=== PATIENT | male | born 2000 ===

== ENCOUNTER 2024-11-20 14:53 | Outpatient (AMB) | payer OTHER, SELFPAY ==
--- NOTE | 2024-11-20 15:30 | A.OFFPC_ITS ---
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 ?? Prior PCP:? . Last office visit/CPE:? > 1 yr Acute issue(s):? Scoliosis Mild 15 deg at base of spine & recommended back brace. Knee pain and had injection behind knee ?? PMHx:? Sleep Apnea and uses CPAP. Scoliosis. SurgHx:? [place] teeth. R 2nd & 3rd finger crush injury FHx:? Mom: Breast CA, DM. Dad: HLD. SocHx:? Nonsmoker, etOH None. No drugs PFSH Medical History (Updated 11/20/24 @ 16:12 by Mendoza Rollins) Crushing injury of finger of right hand Sleep apnea Scoliosis Surgical History (Updated 11/20/24 @ 15:37 by BETH Poe) [place] teeth removed Family History (Updated 11/20/24 @ 15:41 by BETH Poe) Maternal Uncle Substance abuse Father History of high cholesterol Mother Diabetes Breast cancer Maternal Grandmother Breast cancer Social History (Updated 11/20/24 @ 15:42 by BETH Poe) Use of substances other than those prescribed or required for medical reasons: No Questionnaire PHQ-9 Over the last 2 weeks, how often have you been bothered by any of the following problems? 1. Little interest or pleasure in doing things: not at all 2. Feeling down, depressed, or hopeless: not at all 3. Trouble falling or staying asleep, or sleeping too much: not at all 4. Feeling tired or having little energy: not at all 5. Poor appetite or overeating: not at all 6. Feeling bad about yourself - or that you are a failure or have let yourself or your family down: not at all 7. Trouble concentrating on things, such as reading the newspaper or watching television: not at all 8. Moving or speaking so slowly that other people could have noticed. Or the opposite - being so fidgety or restless that you have been moving around a lot more than usual: not at all 9. Thoughts that you would be better off or of hurting yourself in some way: not at all Total score: 0 Depression Screening Interpretation: Negative Depression Screening Done: Yes 42206 - PHQ-9 Billing: Yes Source: Developed by Drs. Edward Hoover, Tanya Christiansen, Gustabo Stephen and colleagues, with an educational nicole from [employer]. Thrive Questionnaire Date Thrive assessed: 11/20/24 I am a: Patient What is your living situation today?: I have a steady place to live Within the past 12 months, did the food you bought not last and you didn't have the money to get more?: Never true Within the past 12 months, did you worry whether your food would run out before you got money to buy more?: Never true Do you have trouble paying for medicines?: No Do you have trouble getting transportation to medical appointments?: No Do you have trouble paying your heating and electricity bill?: No Do you have trouble taking care of your child, family member or friend?: No Do you have trouble with day-to-day activities such as bathing, preparing meals, shopping, managing finances, etc.?: No Are you currently unemployed and looking for a job?: No Are you interested in more education?: Yes Please select the resources that you would like help with: None Currently or been in a relationship where the following occur: No concerns reported THRIVE Score: 0 AUDIT C Alcohol Use Questionnaire (AUDIT-C) 1. How often do you have a drink containing alcohol?: Never 3. How often do you have six or more drinks on one occasion?: Never Total Score: 0 Score Reviewed/Action Taken: Yes KENDAL-7 AMB Questionnaire KENDAL-7 Date KENDAL - 7 assessed: 11/20/24 Feeling nervous, anxious, or on edge: 0 = Not at all Not being able to stop or control worryin = Not at all Worrying too much about different things: 0 = Not at all Trouble relaxin = Not at all Being so restless that it is hard to sit still: 0 = Not at all Becoming easily annoyed or irritable: 0 = Not at all Feeling afraid as if something awful might happen: 0 = Not at all Total KENDAL-7 score (0-4 normal; 5-9 mild; 10-14 moderate; 15-21 severe): 0 Source: Developed by Drs. Edward Hoover, Tanya Christiansen, Gustabo Stephen and colleagues, with an educational nicole from [employer]. KENDAL-7 Assessment Billing KENDAL-7 Assessment Tool: KENDAL-7 Assessment 08857 Review of Systems Const Denies chills, Denies fatigue, Denies fever(s), Denies headache(s) and Denies weakness ENT Denies dizziness and Denies headache(s) Card Denies chest pain, Denies lightheadedness, Denies dyspnea and Denies other (Palpitations) Resp Denies cough, Denies dyspnea, Denies wheezing and Denies other ( shortness of breath) Musc Denies numbness and Denies tingling Neuro Denies dizziness, Denies headache(s), Denies numbness, Denies tingling, Denies paresthesias and Denies weakness Psych Denies anxiety and Denies depression Endo Denies fatigue Aller/Immun Denies wheezing Physical exam (Primary Care) Vital Signs: Last Vital Signs Temp 97.8 F 11/20/24 15:43 Pulse 82 11/20/24 15:43 Resp 14 11/20/24 15:43 BP 110/70 11/20/24 15:43 Pulse Ox 98 11/20/24 15:43 Oxygen Delivery Method Room Air 11/20/24 15:43 BMI result Body Mass Index 32.6 PHQ-9: PHQ-9 Score PHQ-9: Total score 0 11/20/24 15:59 Depression Screening Interpretation: Negative Thrive Assessment: Date of Thrive Assessment Date Thrive assessed 11/20/24 11/20/24 15:47 Currently or been in a relationship where the following occur: No concerns reported Const General: no acute distress and well developed Nutritional Appearance: well nourished Orientation/consciousness: patient oriented x3 HENMT Head: Yes normocephalic and Yes atraumatic Eyes General: appearance normal, both eyes and all related structures Pupils: Equal, round and reactive pupils present EOM: EOMs intact bilaterally Resp Effort & Inspection: normal respiratory effort Auscultation: clear to auscultation bilaterally Cardio Rate: regular rate Rhythm: regular rhythm Heart sounds: S1 normal heart sound present, S2 normal heart sound present, no gallops, no murmurs and no rubs Neuro General: patient oriented x3 and gait normal Cranial nerves: Yes Equal, round and reactive pupils present Psych Affect: normal affect Coding Level of Care Code New Pt Level 3 (17083) Diagnoses Scoliosis M41.9 Knee pain M25.569 Sleep apnea G47.30 Obesity E66.9 Laboratory exam ordered as part of routine general medical examination Z00.00 Additional Codes KENDAL-7 Assessment Billing - KENDAL-7 Assessment Tool: KENDAL-7 Assessment 72863 ([id number]) PHQ-9 - 75187 - PHQ-9 Billing: Yes ([id number]) Assessment & Plan Assessment & Plan (1) Scoliosis: Code(s): M41.9 - Scoliosis, unspecified Category: Medical Plan: Somewhat?mild?scoliosis?on?my?exam?and?I?do?not?have?prior?records. Patient?says?he?was?given?a?back?brace?by?urgent?care?CAREER SERVICES REPRESENTATIVE Will?have?him?follow-up?with?ortho Referred (2) Knee pain: Code(s): M25.569 - Pain in unspecified knee Category: Medical Plan: Patient?is?in?the??has?bilateral?knee?pain?and?wearing??boots?an d?gear at work Already?referred?to?ortho?for?scoliosis Referred?for?bilateral?knee?pain?is?well (3) Sleep apnea: Code(s): G47.30 - Sleep apnea, unspecified Category: Medical Plan: History?of?sleep?apnea?and?CPAP?machine. Patient?needs?new?CPAP Referred?to?Sleep?Medicine (4) Obesity: Code(s): E66.9 - Obesity, unspecified Category: Medical Plan: Obesity?and?history?of?sleep?apnea Will?send?script?for?GLP?1?medication- Mounjaro Patient?will?also?discuss?with?his?insurance?company?which?medications?he?can?ge t?covered?if?they?do?cover?this (5) Laboratory exam ordered as part of routine general medical examination: Code(s): Z00.00 - Encounter for general adult medical examination without abnormal findings Category: Medical Plan: Check?labs Orders: Orders Lipid Panel Today Z00.00 - Encounter for general adult medical examination without abnormal findings Microalbumin, Random (w Creat) Today I10 - Essential (primary) hypertension HIV Ab/Ag Today Z11.3 - Encounter for screening for infections with a predominantly sexual mode of transmission Syphilis Screen Today Z11.3 - Encounter for screening for infections with a predominantly sexual mode of transmission Complete Blood Count Auto Diff Today Z00.00 - Encounter for general adult medical examination without abnormal findings Comprehensive Wheeler. Panel Fast Today Z00.00 - Encounter for general adult medical examination without abnormal findings UA CC w/rflx Micro + Cult Today Z00.00 - Encounter for general adult medical examination without abnormal findings TSH reflex Free T4 Today Z00.00 - Encounter for general adult medical examination without abnormal findings CT NG by PCR Vag/Cerv Today Z11.3 - Encounter for screening for infections with a predominantly sexual mode of transmission Hepatitis B,C Profile Today Z11.3 - Encounter for screening for infections with a predominantly sexual mode of transmission Referrals Sleep Medicine Referral G47.30 - Sleep apnea, unspecified Orthopedics Referral M25.569 - Pain in unspecified knee, M41.9 - Scoliosis, unspecified Medications: New tirzepatide (Mounjaro) for 4 weeks 2.5 mg (0.5 mL) subcut QWEEK 2 mL 3RF 28 days E66.9 - Obesity, unspecified, G47.30 - Sleep apnea, unspecified
[2024-11-20 15:43] VITALS: BP 110/70; PULSE 82; RESP 14; TEMP 36.6; O2SAT 98; BMI 32.6
== END 2024-11-20 16:15 | disposition home or self-care (01) ==
LOC: HO.HMCFM 14:54
PROVIDERS: PCP Family Medicine; Visit Provider Family Medicine
DX: M41.9 Scoliosis, unspecified (principal); M25.569 Pain in unspecified knee; E66.9 Obesity, unspecified; Z68.32 Body mass index [BMI] 32.0-32.9, adult; G47.30 Sleep apnea, unspecified

== ENCOUNTER → 2024-11-20 14:53 | Outpatient (BNVA) | payer OTHER, SELFPAY | PROVIDERS: PCP Family Medicine; Visit Provider Family Medicine | DX: M41.9 Scoliosis, unspecified (principal); G47.30 Sleep apnea, unspecified; E66.9 Obesity, unspecified; M25.561 Pain in right knee; M25.562 Pain in left knee | CPT/HCPCS: 96127; 99202 ==

== ENCOUNTER 2024-11-22 11:01 | Outpatient (REF) | payer OTHER, SELFPAY ==
[2024-11-22 14:37] LABS: Appearance Urine Clear; Glucose Urine UA Negative (Negative); PH 6.0 (5.0-9.0); Specific Gravity - Urine 1.025 (1.005-1.025)
[2024-11-22 14:50] LABS: MANUAL DIFF FLAG NO
[2024-11-22 15:00] LABS: Hematocrit 44.1 % (42.0-52.0); Hemoglobin 14.4 g/dl (14.0-18.0); Imm Gran Abs Auto 0.02 X10*3/uL (0.00-0.03); Imm Gran Pct Auto 0.5 % (0.0-0.4); Lymphocytes Absolute Auto 1.3 X10*3/uL (1.2-4.9); Mean Corpuscular HGB Conc 32.7 g/dl (31.0-36.0); Mean Corpuscular Hemoglobin 27.3 pg (27.0-33.0); Mean Corpuscular Volume 83.5 fL (80.0-98.0); NRBC Abs Auto 0.000 X10*3/uL (0.0-0.012); NRBC Pct Auto 0.0 /100WBC (0.0-0.2); Platelet Count 243 X10*3/uL (160-400); Red Blood Count 5.28 X10*6/uL (4.60-5.80); White Blood Count 4.3 X10*3/uL (4.8-10.8)
[2024-11-22 15:24] LABS: Alanine Aminotransferase 42 U/L (0-40); Albumin Level 4.9 g/dL (3.5-5.0); Alkaline Phosphatase 81 U/L (39-117); Anion Gap 13 (12-20); Aspartate Amino Transferase 25 U/L (5-37); Blood Urea Nitrogen 12 mg/dL (9-16); Calcium 9.2 mg/dL (8.4-10.2); Carbon Dioxide 26 mmol/L (22-29); Chloride 106 mmol/L (96-108); Cholesterol 184 mg/dL (<200); Estimated Glomerular Filt Rate > 60; HDL Cholesterol 35 mg/dL (>40); Potassium 3.6 mmol/L (3.3-5.1); Sodium 141 mmol/L (135-145); Total Protein 7.1 g/dL (6.5-8.0); Triglycerides 115 mg/dL (<150)
[2024-11-22 15:35] LABS: Microalbum/Creatinine Ratio Ur 5.7 ug/mg cr (<30)
[2024-11-23 08:34] LABS: HBS Num1 31.55 mIU/mL (0-7.99); HBc Num1 0.08 S/CO (0.00-0.79); HBsAGNum1 0.62 S/CO (0.00-0.99); HIV Num 1 0.04 S/CO (0.00-0.99); Hepatitis B Surface Antigen Negative (Negative); ~HepC Num1 0.10 S/CO (0.00-0.79); ~Hepatitis B Surface Antibody REACTIVE (Nonreactive); ~Hepatitis C Antibody Nonreactive (Nonreactive)
[2024-11-23 08:42] LABS: Syphilis Screen Nonreactive (Nonreactive)
== END 2024-11-22 11:02 | disposition home or self-care (01) ==
LOC: HO.WFDLDS 11:01
PROVIDERS: Visit Provider Family Medicine
DX: Z00.00 Encounter for general adult medical examination without abnormal findings (principal); I10 Essential (primary) hypertension; Z11.4 Encounter for screening for human immunodeficiency virus [HIV]; Z20.2 Contact with and (suspected) exposure to infections with a predominantly sexual mode of transmission
CPT/HCPCS: 36415; 80053; 80061; 81003; 82043; 82570; 84443; 85025; 86704; 86706; 86780; 86803; 87340; 87389

== ENCOUNTER 2024-11-23 10:56 | Outpatient (AMB) | payer OTHER, SELFPAY ==
[2024-11-23 11:00] VITALS: BP 108/78; PULSE 74; O2SAT 98; BMI 32.1
--- NOTE | 2024-11-23 11:00 | MHC.OFFVIS ---
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 History of sleep apnea and CPAP machine. Patient needs new CPAP. was stationed in [place] and received CPAP from their company. Patient last sleep stud was about 2yrs ago(2022). Accompanied by: Self / Same As Patient Allergies No Known Allergies Allergy (Verified 11/23/24 11:07) HPI Comments Details: 24 year old male is here for a new patient visit and evaluation of his CLARENCE, referred to us by his PCP. FH Denies, sister 23 is developmentally slow with a learning difficulty. 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 He completed a PSG in 2022 and dx with moderate sleep apnea AHI was 29.6 in suppine position, and oxygenation desaturation. He is always sleepy even after 8-10hours of sleep, has a deviated septum and snores loudly. He wakes up with headaches feels drowsy all day. He feels chronically fatigued. He has a h/o sleep talking, and gibberish, denies parasomnias. He falls a lot and feels very clumsy as his knees give out on him, taking Tizanidine for lbp, will f/u with ortho December 21. He has morning headaches every other day but they go away once he washes his face or splashes water on it. Denies bruxism. Deneis RLS symptoms. His diet is okay, just likes to eat fast food, if not able to meal prep. He plans to start mounjaro 2.5mg at the pharmacy, which he has not picked up and needs a prior authorization. Currently taking phentermine which helps crave his appetite. He goes to the gym 2-3x a week 30 min to an hour, weight lifting and plays basket ball for cardio still can not lose weight. Drinks plenty of water. Does not drink alcohol, does not smoke, and or vape. [facility] Medical History Crushing injury of finger of right hand Sleep apnea Scoliosis Surgical History [place] teeth removed Family History Maternal Uncle Substance abuse Father History of high cholesterol Mother Diabetes Breast cancer Maternal Grandmother Breast cancer Physical Exam Vital Signs: Last Vital Signs Pulse 74 11/23/24 11:00 BP 108/78 11/23/24 11:00 Pulse Ox 98 11/23/24 11:00 Oxygen Delivery Method Room Air 11/23/24 11:00 BMI result Body Mass Index 32.1 Const General: cooperative, comfortable and no acute distress Nutritional Appearance: average body habitus and obese Orientation/consciousness: patient oriented x3 HEENT Face and sinus: Yes face symmetric Throat: Yes other ([place] score of 4) Eyes Pupils: Equal, round and reactive pupils present Neck Neck: Yes full ROM Resp Effort & Inspection: normal respiratory effort and able to speak in complete sentences Neuro General: patient oriented x3 and moves all extremities Cranial nerves: Yes Equal, round and reactive pupils present, Yes Normal accommodation reflex present, Yes Normal facial strength present, Yes Midline tongue present, Yes Ability to bilaterally rotate head present and Yes Ability to bilaterally elevate shoulders present Cognition (Neuro): normal cognition Gait exam (Neuro): Normal gait present Motor exam (neuro): 5/5 motor strength present throughout and Normal motor muscle tone present throughout Deep tendon reflexes (DTR's): Right triceps reflex intensity grade: 2+, Left triceps reflex intensity grade: 2+, Rt Biceps (C5, C6): 2+, Left biceps reflex intensity grade: 2+, Right brachioradialis reflex intensity grade: 2+, Left brachioradialis reflex intensity grade: 2+, Right patellar reflex intensity grade: 2+, Left patellar reflex intensity grade: 2+, Right ankle reflex intensity grade: 2+ and Left ankle reflex intensity grade: 2+ Psych Appearance: grossly normal Attitude: cooperative Thought process: Normal thought process present Thought content: Normal thought content present Results Reviewed Results Reviewed: labs cholesterol LDL elevated Assessment & Plan Assessment & Plan (1) Excessive daytime sleepiness: Comment: hypersomolence Code(s): G47.19 - Other hypersomnia Category: Medical (2) History of deviated nasal septum: Comment: refer to ENT Code(s): Z87.09 - Personal history of other diseases of the respiratory system Category: Medical Plan HST to r/o CLARENCE Labs for fatigue b12, vit d, ferritin mma, homocystein folate, A1c? Deviated septum ENT Referral f/u in 3 months Orders: Orders Vitamin B12 and Folate Today G47.19 - Other hypersomnia Ferritin Today G47.19 - Other hypersomnia Complete Blood Count no Diff Today G47.19 - Other hypersomnia Vitamin D 25-OH Total Today G47.19 - Other hypersomnia Methylmalonic Acid Today G47.19 - Other hypersomnia, G47.9 - Sleep disorder, unspecified, R53.83 - Other fatigue Homocysteine Today G47.19 - Other hypersomnia, G47.9 - Sleep disorder, unspecified, R53.83 - Other fatigue Hemoglobin A1c Today G47.19 - Other hypersomnia Comprehensive Met. Panel Today G47.19 - Other hypersomnia RT home sleep study Today G47.19 - Other hypersomnia, Z87.09 - Personal history of other diseases of the respiratory system Referrals Ear/Nose/Throat Referral G47.19 - Other hypersomnia, Z87.09 - Personal history of other diseases of the respiratory system Patient Instructions: Sleep Hygiene provided: set a scheduled bedtime and wake time to help regulate the circadian rhythm and balance the release of pituitary hormones. Sleep in a dark room, temperatures below 68 degrees, and no devices n bed. Limit caffeinated products 6 hours prior to bed, and limit fluids 2-4 hours prior to bed. Gentle night yoga, diffusing essential oils, and playing soft music can be relaxing. Hypersomnolence - his last two weight loss meds were phenermine and it helped him to focus, and stay awake while avoiding food cravings and suppressing appetite. Coding Level of Care Code New Pt Level 4 (96616) Diagnoses Excessive daytime sleepiness G47.19 History of deviated nasal septum Z87. Time Spent (min) 30 Comment Evaluation Sleep Questionnaire Difficulty falling asleep: No Difficulty staying asleep?: No Number of arousals: 0 Snoring: Yes (loud due deviated septum) Witnessed apneas: No Gasping arousals: No Nocturia: No GERD: No Vivid dreams: Yes (fear inducing and heart races) Acting out dreams: No Abnormal behavior in sleep: Yes (talking) Abnormal movements in sleep: No Morning headaches: Yes Excessive daytime sleepiness: Yes Daytime naps: No Restless legs: No Hallucinations: No Sleep paralysis: No Drop attacks: No Sleep Study: Yes CPAP: Yes
== END 2024-11-23 12:04 | disposition home or self-care (01) ==
PROVIDERS: PCP Family Medicine; Visit Provider Physician Assistant Medical
DX: G47.19 Other hypersomnia (principal); Z87.09 Personal history of other diseases of the respiratory system
CPT/HCPCS: 99204

== ENCOUNTER 2024-11-23 10:56 | Outpatient (REF) | payer OTHER, SELFPAY ==
[2024-11-23 14:57] LABS: Hematocrit 41.7 % (42.0-52.0); Hemoglobin 13.9 g/dl (14.0-18.0); Mean Corpuscular HGB Conc 33.3 g/dl (31.0-36.0); Mean Corpuscular Hemoglobin 27.8 pg (27.0-33.0); Mean Corpuscular Volume 83.4 fL (80.0-98.0); NRBC Abs Auto 0.000 X10*3/uL (0.0-0.012); NRBC Pct Auto 0.0 /100WBC (0.0-0.2); Platelet Count 232 X10*3/uL (160-400); Red Blood Count 5.00 X10*6/uL (4.60-5.80); White Blood Count 4.3 X10*3/uL (4.8-10.8)
[2024-11-23 15:18] LABS: Hemoglobin A1C 136.9180 umol/L; Total Hemoglobin (HGBA1C) 3665.1498 umol/L
[2024-11-23 15:38] LABS: Alanine Aminotransferase 34 U/L (0-40); Albumin Level 4.6 g/dL (3.5-5.0); Alkaline Phosphatase 77 U/L (39-117); Anion Gap 11 (12-20); Aspartate Amino Transferase 22 U/L (5-37); Blood Urea Nitrogen 11 mg/dL (9-16); Calcium 8.6 mg/dL (8.4-10.2); Carbon Dioxide 25 mmol/L (22-29); Chloride 107 mmol/L (96-108); Estimated Glomerular Filt Rate > 60; Potassium 3.6 mmol/L (3.3-5.1); Sodium 139 mmol/L (135-145); Total Protein 6.7 g/dL (6.5-8.0)
[2024-11-23 15:56] LABS: Folate 9.4 ng/mL (> or = 4.0); Vitamin B12 329 pg/mL (200-900)
[2024-11-23 15:58] LABS: Ferritin 141 ng/mL (20-250)
== END 2024-11-23 10:57 | disposition home or self-care (01) ==
LOC: HO.HKASLDS 10:56
PROVIDERS: PCP Family Medicine; Visit Provider Physician Assistant Medical
DX: G47.19 Other hypersomnia (principal); R53.83 Other fatigue; Z87.09 Personal history of other diseases of the respiratory system
CPT/HCPCS: 36415; 80053; 82306; 82607; 82728; 82746; 83036; 83090; 83921; 85027; 99202

== ENCOUNTER 2024-12-21 09:29 | Outpatient (AMB) | payer OTHER, SELFPAY ==
--- NOTE | 2024-12-21 09:38 | MHC.OFFVIS ---
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 Patient was referred by DR. Canseco 11/22/24, at their visit they discussed mild scoliosis on his exam. At today's visit he states that for the last eight years he has had lower back pain, no injury's to report. Patient states that he is currently in the , [employer] and does a lot of repetitive motions. Patient states that he has attended physical therapy with mild relief. He added that he has never tried injections but would like to discuss his options. No numbness or tingling to report. Allergies No Known Allergies Allergy (Verified 12/21/24 09:44) Medication List - Last Reconciled 12/21/24 by Vernell Schmidt MD cholecalciferol (vitamin D3) 25 mcg PO DAILY 3 months MDD 25mcg tirzepatide (Mounjaro) 2.5 mg (0.5 mL) subcut QWEEK 28 days tizanidine 4 mg PO BEDTIME PRN HPI Comments Details: Lower back pain first happened 8 years ago. Better but stagnating. Pain initially from deadlifting. Treated with NSAIDs. Thought to be muscle pull. It is still same area, same type of pain. Across lower back pain. Non radicular. No numbness. Any new weakness. No bladder/bowel issues. Went to urgent care in [place], did xrays, told him to be mild scoliosis 15 degrees. We do not have a copy of those records. Last PT September 2023. He does have workout regimen 3 days a week. Has separate (non radicular) pain on both knees, has appointment with ortho in January. 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 REPLACED BY [facility] Medical History Crushing injury of finger of right hand Sleep apnea Scoliosis Surgical History [place] teeth removed Family History Maternal Uncle Substance abuse Father History of high cholesterol Mother Diabetes Breast cancer Maternal Grandmother Breast cancer Social History (Updated 12/21/24 @ 09:45 by Mira Olmos) Alcohol intake: never Patient Tobacco Use Status: Never used Tobacco Current occupational status: employed Current occupation: - [employer]. Review of Systems Const All systems reviewed & are unremarkable except as noted in HPI and below Physical Exam Exam Exam: Constitutional: Patient appears to be in no acute distress, well nourished and well developed. Patient was appropriately conversant and oriented. Good historian. MSK: No specific abnormalities found on inspection of the spine and all extremities. No pain with palpation over the lumbar area. SI joints nontender. GT nontender. Lumbar ROM was full but he had some pain with and range extension and end range forward flexion. No pain with rotation. Bilateral hip, knee and ankle ROM WNL. No ligamentous laxity or crepitance. No increased effusion. Straight-leg raising test negative. FABERE test positive left side only. Strength is 5/5 in all muscle groups tested. No increased tone noted. Neurological: Neurologic examination of the upper and lower extremities was nonfocal with intact sensation, muscle stretch reflexes and without focal motor deficits . Ashton?s negative bilaterally. Babinski was down going bilaterally. Clonus was negative. Gait is non-antalgic without loss of balance. Vital Signs: BMI result Body Mass Index 31.2 Results Reviewed Results Reviewed: The previous x-ray was not available for my review. I reviewed records from the following: PCP Assessment & Plan Assessment & Plan (1) Lower back pain: Code(s): M54.50 - Low back pain, unspecified Category: Medical Qualifiers: Chronicity: chronic Back pain laterality: bilateral Sciatica presence: without sciatica Qualified Code(s): M54.50 - Low back pain, unspecified; G89.29 - Other chronic pain (2) Myofascial pain: Code(s): M79.18 - Myalgia, other site Category: Medical Plan Lower back pain that is none radicular. No signs of lumbar radiculopathy. SI joint nontender either. I suspect this is muscular tightness on paraspinals, quadratus lumborum and even hamstrings. However given his line of work, we should rule out spondylolysis. Sending him for x-rays of lumbar spine to include oblique views. Depending on results, would most likely send him back for physical therapy. Assessment and plan discussed with patient, and patient was agreeable. All questions were answered thoroughly. Follow up telehealth next week. Vernell Schmidt MD, KILO Board Certified, [place] [employer] and Rehabilitation (ABPMR) Board Certified, [place] [employer] of Electrodiagnostic Medicine (ABEM) Orders: Orders XR lumbar spine 2-3V Today M54.9 - Dorsalgia, unspecified Coding Level of Care Code New Pt Level 3 (99603) Diagnoses Chronic bilateral low back pain without sciatica M54.50; G89.29 Chronicity: chronic Back pain laterality: bilateral Sciatica presence: without sciatica Myofascial pain M79.18
[2024-12-21 09:44] VITALS: BMI 31.2
== END 2024-12-21 10:10 | disposition home or self-care (01) ==
LOC: HO.HOS 09:29
PROVIDERS: PCP Family Medicine; Visit Provider Physical Medicine & Rehabilitation
DX: M54.50 Low back pain, unspecified (principal); G89.29 Other chronic pain; M79.18 Myalgia, other site
CPT/HCPCS: 99203

== ENCOUNTER 2024-12-21 09:29 | Outpatient (REF) | payer OTHER, SELFPAY ==
--- NOTE | ~2024-12-21 | XR_ITS ---
EXAMINATION: XR LUMBOSACRAL SPINE CLINICAL INFORMATION: M54.9 - Dorsalgia, unspecified COMPARISON: None available. TECHNIQUE: Three views of the lumbosacral spine. FINDINGS: Moderate stool is present in the transverse colon. Somewhat linear density projecting over the left mid kidney could represent stone. There are 5 non-rib bearing lumbar segments. There is subtle retrolisthesis at L1-2 and L3-4. T12-L1: Minimal disc space narrowing L1-L2: Minimal disc space narrowing L2-L3: Unremarkable L3-L4: Minimal disc space narrowing L4-L5: Unremarkable L5-S1: Unremarkable. On the oblique views, the pars interarticularis regions are not well demonstrated. XR/XR lumbar spine 2-3V IMPRESSION: Mild degenerative disc disease. L5-S1: Pars intraarticularis defects are not ruled out. However, there is no anterolisthesis. Possible left kidney stone. Electronically signed by: Calin Zhao MD 12/21/2024 10:46 AM EDT
== END 2024-12-21 09:30 | disposition home or self-care (01) ==
LOC: HO.HOSX 09:29
PROVIDERS: PCP Family Medicine; Visit Provider Physical Medicine & Rehabilitation
DX: M25.561 Pain in right knee (principal); M79.18 Myalgia, other site; M54.50 Low back pain, unspecified; M25.562 Pain in left knee; G89.29 Other chronic pain; Z79.899 Other long term (current) drug therapy
CPT/HCPCS: 72100; 99202

== ENCOUNTER → 2024-12-21 10:04 | Outpatient (BNV) | payer OTHER, SELFPAY | PROVIDERS: PCP Family Medicine; Visit Provider Radiology Diagnostic Radiology | DX: M51.369 Other intervertebral disc degeneration, lumbar region without mention of lumbar back pain or lower extremity pain (principal) | CPT/HCPCS: 72100 ==

== ENCOUNTER 2025-01-04 09:35 | Outpatient (AMB) | payer OTHER, SELFPAY ==
--- NOTE | 2025-01-04 09:36 | A.OFFVIS_ITS ---
Intake Visit Reasons: Tel-Back Pain/Scoliosis-xray follow up Intake Note: Aime is a 24 year old male who presents today VIA Phone TeleHealth visit for his Pain/Scoliosis- X-ray review. Patient states that the best number would be 91 Allergies No Known Allergies Allergy (Verified 01/04/25 09:38) HPI Comments Details: Lower back pain first happened 8 years ago. Better but stagnating. Pain initially from deadlifting. Treated with NSAIDs. Thought to be muscle pull. It is still same area, same type of pain. Across lower back pain. Non radicular. No numbness. Any new weakness. No bladder/bowel issues. Went to urgent care in [place], did xrays, told him to be mild scoliosis 15 degrees. We do not have a copy of those records. Last PT September 2023. He does have workout regimen 3 days a week. Has separate (non radicular) pain on both knees, has appointment with ortho in January. 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 Since last time I saw her him, we have done a lumbar x-ray which did show mild disc space narrowing. No spondylolisthesis. He has had 1 severe episode of pain, lasting 3 days, 6/10 pain scale, could not stand or sit due to pain. Denied numbness or weakness. Today pain scale is 2/10. [facility] Medical History Crushing injury of finger of right hand Sleep apnea Scoliosis Surgical History [place] teeth removed Family History Maternal Uncle Substance abuse Father History of high cholesterol Mother Diabetes Breast cancer Maternal Grandmother Breast cancer Social History (Updated 12/21/24 @ 09:45 by Mira Olmos) Alcohol intake: never Patient Tobacco Use Status: Never used Tobacco Current occupational status: employed Current occupation: [employer]. Telehealth Telehealth Telehealth Platform: Telephone Location of provider rendering services: practice address Location of patient: address on file Patient Identification confirmed using: Name, : Yes Telehealth method: voice only Patient verbally consented to treatment: Yes Patient verbally consented to billing insurance company: Yes Patient informed of any privacy concerns related to visit: No Minutes spent on Phone/Video with Pt.: 10 Results Reviewed Results Reviewed: Ordering Physician: Vernell Vázquez Date of Service: 12/21/24 Procedure(s): XR lumbar spine 2-3V Accession Number(s): [id number] cc: Gorge Canseco MD; Vernell Vázquez~ EXAMINATION: XR LUMBOSACRAL SPINE CLINICAL INFORMATION: M54.9 - Dorsalgia, unspecified COMPARISON: None available. TECHNIQUE: Three views of the lumbosacral spine. FINDINGS: Moderate stool is present in the transverse colon. Somewhat linear density projecting over the left mid kidney could represent stone. There are 5 non-rib bearing lumbar segments. There is subtle retrolisthesis at L1-2 and L3-4. T12-L1: Minimal disc space narrowing L1-L2: Minimal disc space narrowing L2-L3: Unremarkable L3-L4: Minimal disc space narrowing L4-L5: Unremarkable L5-S1: Unremarkable. On the oblique views, the pars interarticularis regions are not well demonstrated. XR/XR lumbar spine 2-3V IMPRESSION: Mild degenerative disc disease. L5-S1: Pars intraarticularis defects are not ruled out. However, there is no anterolisthesis. Possible left kidney stone. Electronically signed by: Calin Zhao MD 12/21/2024 10:46 AM EDT RP Assessment & Plan Assessment & Plan (1) Lower back pain: Code(s): M54.50 - Low back pain, unspecified Category: Medical Qualifiers: Chronicity: chronic Back pain laterality: bilateral Sciatica presence: without sciatica Qualified Code(s): M54.50 - Low back pain, unspecified; G89.29 - Other chronic pain (2) Myofascial pain: Code(s): M79.18 - Myalgia, other site Category: Medical Plan Lower back pain that is non radicular. No signs of lumbar radiculopathy and SI joint nontender when I last saw him in person. I thought/suspected this is muscular tightness on paraspinals, quadratus lumborum and even hamstrings. Lumbar x-rays did showed disc space narrowing mildly. We have agreed to starting him in physical therapy especially to work on paraspinals and quadratus lumborum and core muscles. 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 We will re-evaluate in 4-6 weeks. Assessment and plan discussed with patient, and patient was agreeable. All questions were answered thoroughly. Vernell Schmidt MD, KILO Board Certified, [place] Board of [employer] Medicine and Rehabilitation (ABPMR) Board Certified, [place] Board [employer] Electrodiagnostic Medicine (ABEM) Orders: Orders PT Evaluation and Treatment Today G89.29 - Other chronic pain, M54.50 - Low back pain, unspecified, M79.18 - Myalgia, other site Coding Level of Care Code Est Pt Level 4 (75482) Diagnoses Chronic bilateral low back pain without sciatica M54.50; G89.29 Chronicity: chronic Back pain laterality: bilateral Sciatica presence: without sciatica Myofascial pain M79.18
== END 2025-01-04 09:56 | disposition home or self-care (01) ==
LOC: HO.HOS 09:35
PROVIDERS: PCP Family Medicine; Visit Provider Physical Medicine & Rehabilitation
DX: M54.50 Low back pain, unspecified (principal); G89.29 Other chronic pain; M79.18 Myalgia, other site
CPT/HCPCS: 99214

== ENCOUNTER → 2025-01-04 09:35 | Outpatient (BNVA) | payer OTHER, SELFPAY | PROVIDERS: PCP Family Medicine; Visit Provider Physical Medicine & Rehabilitation | DX: M54.50 Low back pain, unspecified (principal); G89.29 Other chronic pain; M79.18 Myalgia, other site | CPT/HCPCS: 99212 ==

== ENCOUNTER 2025-01-18 10:38 | Outpatient (REF) | payer OTHER, SELFPAY ==
--- NOTE | ~2025-01-18 | XR_ITS ---
Exam: X-ray, bilateral knees.XR KNEE 3 VIEWS BILATERAL TECHNIQUE: Three views lower extremity joint, bilateral knees INDICATION: pain COMPARISON: None available. FINDINGS: RIGHT KNEE: There is no joint effusion. There is mild narrowing of the medial joint space. There are no osteophytes or soft tissue calcifications. There is mild lateral patellar tilt. LEFT KNEE: There is no joint effusion There is mild narrowing of the medial joint space. There is lateral patellar tilt. XR/XR Knee Leonardo 3V IMPRESSION: Right knee: There is mild lateral patellar tilt. Correlate for signs symptoms of excess lateral pressure syndrome. Nonspecific mild medial joint space narrowing. Left knee: There is moderate lateral patellar tilt. Correlate for signs symptoms of excessive lateral pressure syndrome. Nonspecific mild medial joint space narrowing. Electronically signed by: Calin Zhao MD 01/18/2025 02:28 PM EDT
== END 2025-01-18 10:39 | disposition home or self-care (01) ==
LOC: HO.HOSX 10:38
PROVIDERS: Visit Provider Physician Assistant
DX: S93.409A Sprain of unspecified ligament of unspecified ankle, initial encounter (principal); M22.2X1 Patellofemoral disorders, right knee; M22.2X2 Patellofemoral disorders, left knee; M25.561 Pain in right knee; M25.562 Pain in left knee
CPT/HCPCS: 73562; 99212

== ENCOUNTER 2025-01-18 13:52 | Outpatient (AMB) | payer OTHER, SELFPAY ==
--- NOTE | 2025-01-18 14:05 | A.OFFVIS_ITS ---
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 Patient reports pain and weakness in both of his knees that has been present for about 4 years. States that his right knee have given out a few times. His knee pain is located under his kneecap. He denies any traumatic injury. 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 He was given gel injections about 2 years ago that had helped for a week. pain has been present for4 years. cosntatn bending and crawling, impact on knees. under knee cap. intermittent pain weakness in knees, right knee given out a few times. HX of gel injeciton about 2 years ago that helped for about a week. 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 He c/o pain with stairs, climbing, jumping. He states the pain is anterior and feels deep inside. He did have gel injections done while in [place] for knee pain. No relief. He has not done PT and no steroid injections. He does not take OTC ibuprofen or tylenol. REPLACED BY [facility] Medical History Crushing injury of finger of right hand Sleep apnea Scoliosis Surgical History [place] teeth removed Family History Maternal Uncle Substance abuse Father History of high cholesterol Mother Diabetes Breast cancer Maternal Grandmother Breast cancer Social History (Updated 12/21/24 @ 09:45 by Mira Arambula Alcohol intake: never Patient Tobacco Use Status: Never used Tobacco Current occupational status: employed Current occupation: - [employer]. Review of Systems Const All systems reviewed & are unremarkable except as noted in HPI and below Physical Exam Vital Signs: BMI result Body Mass Index 31.2 Const General: cooperative and no acute distress Orientation/consciousness: patient oriented x3 Resp Effort & Inspection: normal respiratory effort and able to speak in complete sen tences Cardio Peripheral pulses: Peripheral pulses 2+ throughout Neuro General: patient oriented x3 Extrem Other: Bilateral knees are normal to inspection he has no effusion. Full range of motion without crepitus. He does have some tenderness laterally with palpation along the patella and positive patellar grind bilaterally. Calf supple and nontender neurovascularly intact. Results Reviewed Results Reviewed: X-rays of both knees obtained in the office today and reviewed by me show bilateral patellar tilt. Assessment & Plan Assessment & Plan (1) Disorder of both patellofemoral joints: Code(s): M22.2X1 - Patellofemoral disorders, right knee; M22.2X2 - Patellofemoral disorders, left knee Category: Medical Plan: We discussed options today which includes physical therapy for both knees. An order was placed and he will contact the facility to make an appointment. Was also fit for bilateral Josafat Pull stabilizing knee braces in the office to use with activity. I sent a prescription for naproxen to the pharmacy to take twice a day for 2 weeks. He was also given a work note for no deep bending twisting pivoting or squatting and avoid impact activities for 6 weeks and then he can resume regular duty. He will see me back as needed. Orders: Orders XR Knee Leonardo 3V Today M25.561 - Pain in right knee, M25.562 - Pain in left knee PT Evaluation and Treatment Today M22.2X1 - Patellofemoral disorders, right knee, M22.2X2 - Patellofemoral disorders, left knee Medications: New naproxen 500 mg PO BID 60 tabs 3RF 30 days S93.409A - Sprain of unspecified ligament of unspecified ankle, initial encounter Coding Level of Care Code Est Pt Level 3 (83839) Complex EM visit Add On G2211 Diagnoses Disorder of both patellofemoral joints M22.2X1; M22.2X2
[2025-01-18 14:13] VITALS: BMI 31.2
== END 2025-01-18 15:02 | disposition home or self-care (01) ==
LOC: HO.HOS 13:52
PROVIDERS: PCP Family Medicine; Visit Provider Physician Assistant
DX: M22.2X1 Patellofemoral disorders, right knee (principal); M22.2X2 Patellofemoral disorders, left knee
CPT/HCPCS: 99213; G2211

== ENCOUNTER → 2025-01-18 13:53 | Outpatient (BNV) | payer OTHER, SELFPAY | PROVIDERS: Visit Provider Radiology Diagnostic Radiology | DX: M25.561 Pain in right knee (principal); M25.562 Pain in left knee | CPT/HCPCS: 73562 ==

== ENCOUNTER → 2025-02-01 10:05 | Outpatient (REF) | payer OTHER, SELFPAY | LOC: HO.SL 10:05 | PROVIDERS: Visit Provider Physician Assistant Medical | DX: Z13.89 Encounter for screening for other disorder (principal) ==

== ENCOUNTER → 2025-02-01 10:36 | Outpatient (BNV) | payer OTHER, SELFPAY | PROVIDERS: Visit Provider Psychiatry & Neurology Neurology | DX: G47.33 Obstructive sleep apnea (adult) (pediatric) (principal) | CPT/HCPCS: 95806 ==

== ENCOUNTER 2025-02-15 07:09 | Outpatient (RCR) | payer OTHER, SELFPAY ==
--- NOTE | 2025-02-12 14:43 | MHC.PT.EP ---
[facility] [place] Office [place] Office [place] Office [address] Juan Antonio Richard [address] [phone] F: [phone] F: [phone] F: [phone] F: [phone] Physical Therapy Plan of Care Date of Evaluation: 02/12/25 Date of Surgery: Diagnosis: M54.50 Low back pain, unspecified G89.29 Other chronic pain M79.18 Myalgia other site Lower back pain *Myofascial pain; work on core muscles Quadratus lumborum, lumbar paraspinals signed by Dr. Vernell Schmidt MD date of script 12/26/24 Assessment: Pt is a 24 y/o male, referred to PT for treatment from M54.50 Low back pain, unspecified G89.29 Other chronic pain M79.18 Myalgia other site Lower back pain *Myofascial pain; work on core muscles Quadratus lumborum, lumbar paraspinals signed by Dr. Vernell Schmidt MD date of script 12/26/24 Pt was also seen by [facility] in December of 2024 for the treatment of knee pain. He was given knee braces and notes using a kneeling mat while at work. Pt exhibits tight R>L paraspinals, tight QL, tight hip flexors, and weak L>R hip abd/ext. He would benefit from attending skilled PT services at a frequency of 2x/week x 4 weeks to address impairments, implement HEP, and restore functional mobility tolerance to resume PLOF. He exhibits (+) Gorge test for hip flexor L>R, (+) lumbar instability testing R>L, and lacks a formal exercise program, noting intolerance for running, squatting, or rising from a kneeling position. He had greater instability/weakness rising from a L LE than from his R LE. Post initial assessment, he was implemented in a written HEP program consisting of hip flexor stretch, LBTR trunk rotation, and hip ER stretching. He is an excellent candidate for PT. Frequency and Duration: The patient will be seen 2x/week x 4 weeks. Short Term Goals: 1. Initiate self care management/home program for lower back/knee pain. 2. Resume exercising back into the gym with tasks to improve flexibility and self-care MOD I. 3. Reduce back pain by 25%. 4. Pt will demonstrate good SLR control and eccentric strength. 5. Initiate walk>jog>program with sx <2/10 in L/S. 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 I HEP with self care management for treatment of back pain. 2. Strength hip ext 5/5 L>R. 3. Strength hip abd 5/5 L>R. 4. Pt will demonstrate negative lumbar prone instability testing. 5. Rise from kneeling position L>R and R>L MOD I. 6. Be able to jog<>run 1 mile with sx <3/10 in L/S. Treatment Plan: Modalities to reduce pain, spasms and effusion. Manual therapy to restore motion and function. Therapeutic exercise to improve strength and flexibility. Neuromuscular re-education for posture and balance. Therapeutic activities to return to functional activities of daily living. Electronically signed by: Susy Wynn PT, DPT Please sign and return to therapist. Thank you for your referral.
== END 2025-02-22 15:16 | disposition home or self-care (01) ==
LOC: HO.PTS 07:09
PROVIDERS: PCP Family Medicine; Visit Provider Physical Medicine & Rehabilitation
DX: M54.50 Low back pain, unspecified (principal); G89.29 Other chronic pain; M79.18 Myalgia, other site
CPT/HCPCS: 97110; 97161

== ENCOUNTER 2025-02-23 09:15 | Outpatient (AMB) | payer OTHER, SELFPAY ==
--- NOTE | 2025-02-23 09:25 | MHC.OFFVIS ---
Vital Signs 02/23/25 09:30 Height 5 ft 8 in Weight 208 lb BMI 31.6 Intake Visit Reasons: OV- Lower Back pain, PT Follow up Intake Note: Aime is a 24 year old male who presents today as a follow up for his Lower Back pain. At last visit we referred him to physical therapy. At today's visit he states that he only had two appointments with physical therapy but noted that he also missed two appointments. Patient was instructed to call the physical therapy department to make his next appointment. Patient states that the lower back pain feels like it plateaued and that he feels that it is now manageable. Allergies No Known Allergies Allergy (Verified 02/23/25 09:29) Medication List - Last Reconciled 02/23/25 by Vernell Schmidt MD cholecalciferol (vitamin D3) 25 mcg PO DAILY 3 months MDD 25mcg naproxen 500 mg PO BID 30 days tizanidine 4 mg PO BEDTIME PRN HPI Comments Details: Lower back pain first happened 8 years ago. Better but stagnating. Pain initially from deadlifting. Treated with NSAIDs. Thought to be muscle pull. It is still same area, same type of pain. Across lower back pain. Non radicular. No numbness. Any new weakness. No bladder/bowel issues. Went to urgent care in [place], did xrays, told him to be mild scoliosis 15 degrees. We do not have a copy of those records. Last PT September 2023. He does have workout regimen 3 days a week. Has separate (non radicular) pain on both knees, has appointment with ortho in January. 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 Since last time I saw her him, no severe episodes. Would have pain depending on activity, need to get support and doesn't or prolonged sitting, standing or fast walking. Non radicular. [facility] Medical History Crushing injury of finger of right hand Sleep apnea Scoliosis Surgical History [place] teeth removed Family History Maternal Uncle Substance abuse Father History of high cholesterol Mother Diabetes Breast cancer Maternal Grandmother Breast cancer Social History (Updated 12/21/24 @ 09:45 by Mira Olmos) Alcohol intake: never Patient Tobacco Use Status: Never used Tobacco Current occupational status: employed Current occupation: - [employer]. Physical Exam Exam Exam: Constitutional: Patient appears to be in no acute distress, well nourished and well developed. Patient was appropriately conversant and oriented. Good historian. MSK: No specific abnormalities found on inspection of the spine and all extremities. No pain with palpation over the lumbar area. SI joints nontender. GT nontender. Lumbar ROM was full but he had some pain with and range extension and end range forward flexion. No pain with rotation. Bilateral hip, knee and ankle ROM WNL. No ligamentous laxity or crepitance. No increased effusion. Straight-leg raising test negative. FABERE test positive left side only. Strength is 5/5 in all muscle groups tested. No increased tone noted. Neurological: Neurologic examination of the upper and lower extremities was nonfocal with intact sensation, muscle stretch reflexes and without focal motor deficits . Ashton?s negative bilaterally. Babinski was down going bilaterally. Clonus was negative. Gait is non-antalgic without loss of balance. Vital Signs: BMI result Body Mass Index 31.6 Results Reviewed Results Reviewed: Ordering Physician: Vernell Vázquez Date of Service: 12/21/24 Procedure(s): XR lumbar spine 2-3V Accession Number(s): [id number] cc: Gorge Canseco MD; Vernell Vázquez EXAMINATION: XR LUMBOSACRAL SPINE CLINICAL INFORMATION: M54.9 - Dorsalgia, unspecified COMPARISON: None available. TECHNIQUE: Three views of the lumbosacral spine. FINDINGS: Moderate stool is present in the transverse colon. Somewhat linear density projecting over the left mid kidney could represent stone. There are 5 non-rib bearing lumbar segments. There is subtle retrolisthesis at L1-2 and L3-4. T12-L1: Minimal disc space narrowing L1-L2: Minimal disc space narrowing L2-L3: Unremarkable L3-L4: Minimal disc space narrowing L4-L5: Unremarkable L5-S1: Unremarkable. On the oblique views, the pars interarticularis regions are not well demonstrated. XR/XR lumbar spine 2-3V IMPRESSION: Mild degenerative disc disease. L5-S1: Pars intraarticularis defects are not ruled out. However, there is no anterolisthesis. Possible left kidney stone. Electronically signed by: Calin Zhao MD 12/21/2024 10:46 AM EDT RP Assessment & Plan Assessment & Plan (1) Lumbar degenerative disc disease: Code(s): M51.369 - Other intervertebral disc degeneration, lumbar region without mention of lumbar back pain or lower extremity pain Category: Medical Qualifiers: Disc-related pain type: discogenic back pain only Qualified Code(s): M51.360 - Other intervertebral disc degeneration, lumbar region with discogenic back pain only Plan Patient had undergone adequate conservative management including PT without improvement of condition. It would be reasonable to obtain further imaging such as MRI. An MRI would help rule out any serious condition, guide treatment and assess prognosis for recovery. Specifically ruling out lumbar disc herniation causing nerve impingement. Assessment and plan discussed with patient, and patient was agreeable. All questions were answered thoroughly. Follow up after MRI. Vernell Schmidt MD, KILO Board Certified, [place] [employer] and Rehabilitation (ABPMR) Board Certified, [place] [employer] Electrodiagnostic [employer] (ABEM) Orders: Orders MR lumbar spine wo con Today M51.369 - Other intervertebral disc degeneration, lumbar region without mention of lumbar back pain or lower extremity pain Coding Level of Care Code Est Pt Level 4 (44116) Diagnoses Degeneration of intervertebral disc of lumbar region with discogenic back pain M51.360 Disc-related pain type: discogenic back pain only
[2025-02-23 09:30] VITALS: BMI 31.6
== END 2025-02-23 09:57 | disposition home or self-care (01) ==
LOC: HO.HOS 09:16
PROVIDERS: Visit Provider Physical Medicine & Rehabilitation
DX: M51.360 Other intervertebral disc degeneration, lumbar region with discogenic back pain only (principal)
CPT/HCPCS: 99214

== ENCOUNTER → 2025-02-23 09:15 | Outpatient (BNVA) | payer OTHER, SELFPAY | PROVIDERS: Visit Provider Physical Medicine & Rehabilitation | DX: M51.360 Other intervertebral disc degeneration, lumbar region with discogenic back pain only (principal) | CPT/HCPCS: 99212 ==

== ENCOUNTER 2025-02-26 13:53 | Outpatient (AMB) | payer OTHER, SELFPAY ==
--- NOTE | 2025-02-26 14:00 | MHC.PC.OV ---
Vital Signs 02/26/25 14:05 Height 5 ft 8 in Weight 207 lb BMI 31.5 BP 110/74 Blood Pressure Location Lt brachial Position Sitting Respiration 16 Pulse 77 Pulse Source Pulse Oximeter Temp 98.6 F Temp Source Oral Pulse Oximetry (%) 97 Oxygen Delivery Method Room Air Intake Visit Reasons: CPE with f/u labs and health maint. 30 mins Intake Note: patient here for CPE with follow up labs and health maint. 30 min] Wood Stainer Required: No Allergies No Known Allergies Allergy (Verified 02/26/25 14:03) Medication List - Last Reconciled 02/26/25 by Gorge Canseco MD cholecalciferol (vitamin D3) 25 mcg PO DAILY 3 months MDD 25mcg naproxen 500 mg PO BID 30 days tizanidine 4 mg PO BEDTIME PRN Tobacco use date assessed: 02/26/25 Dental Screening Dental Screen Date: 02/26/25 Did you have a dental visit in the last 12 months?: Yes Did you have a dental problem in the last 6 months where you did not have access to dental care?: No Was dental information given to patient?: Patient has dentist HPI CPE with f/u labs and health maint. 30 mins HPI Details 24 y/o male presents for a CPE with f/u labs and health maintenance. Labs drawn 11/23/24. Reviewed labs with pt. Borderline anemia. A1c 5.6%. Triglycerides 115. TC 184. LDL 126. HDL low at 35. Low vitamin D at 20.3 ng/mL. HPI Comments History of Present Illness Details Documentation assistance for Gorge Canseco MD, was provided by Mendoza Rollins, Powertrain Design Engineer on 02/26/2025 at 2:35 PM EST. I, Dr. Canseco, have read, observed, and verified documentation. [facility] Medical History (Updated 02/26/25 @ 14:53 by Gorge Canseco MD) HTN (hypertension) with goal to be determined Crushing injury of finger of right hand Sleep apnea Scoliosis Surgical History [place] teeth removed Family History Maternal Uncle Substance abuse Father History of high cholesterol Mother Diabetes Breast cancer Maternal Grandmother Breast cancer Social History Housing: House Alcohol intake: never Patient Tobacco Use Status: Never used Tobacco e-Cigarette/Vaping Use: Never Used Second Hand Smoke Exposure: No service: Yes Current occupational status: employed Current occupation: - [employer]. Current occupational exposures/hazards: Yes Cognitive needs: No Hearing needs: No Vision needs: Yes Questionnaire PHQ-9 Over the last 2 weeks, how often have you been bothered by any of the following problems? 1. Little interest or pleasure in doing things: not at all 2. Feeling down, depressed, or hopeless: not at all 3. Trouble falling or staying asleep, or sleeping too much: not at all 4. Feeling tired or having little energy: not at all 5. Poor appetite or overeating: not at all 6. Feeling bad about yourself - or that you are a failure or have let yourself or your family down: not at all 7. Trouble concentrating on things, such as reading the newspaper or watching television: not at all 8. Moving or speaking so slowly that other people could have noticed. Or the opposite - being so fidgety or restless that you have been moving around a lot more than usual: not at all 9. Thoughts that you would be better off or of hurting yourself in some way: not at all Total score: 0 Depression Screening Interpretation: Negative Depression Screening Done: Yes 53000 - PHQ-9 Billing: Yes Source: Developed by Drs. Edward Hoover, Tanya Christiansen, Gustabo Stephen and colleagues, with an educational nicole from [employer]. Thrive Questionnaire Date Thrive assessed: 02/26/25 I am a: Patient What is your living situation today?: I have a steady place to live Within the past 12 months, did the food you bought not last and you didn't have the money to get more?: Never true Within the past 12 months, did you worry whether your food would run out before you got money to buy more?: Never true Do you have trouble paying for medicines?: No Do you have trouble getting transportation to medical appointments?: No Do you have trouble paying your heating and electricity bill?: No Do you have trouble taking care of your child, family member or friend?: No Do you have trouble with day-to-day activities such as bathing, preparing meals, shopping, managing finances, etc.?: No Are you currently unemployed and looking for a job?: No Are you interested in more education?: Yes Please select the resources that you would like help with: None Currently or been in a relationship where the following occur: No concerns reported THRIVE Score: 0 AUDIT C Alcohol Use Questionnaire (AUDIT-C) 1. How often do you have a drink containing alcohol?: Never 3. How often do you have six or more drinks on one occasion?: Never Total Score: 0 Score Reviewed/Action Taken: Yes KENDAL-7 AMB Questionnaire KENDAL-7 Date KENDAL - 7 assessed: 02/26/25 Feeling nervous, anxious, or on edge: 0 = Not at all Not being able to stop or control worryin = Not at all Worrying too much about different things: 0 = Not at all Trouble relaxin = Not at all Being so restless that it is hard to sit still: 0 = Not at all Becoming easily annoyed or irritable: 0 = Not at all Feeling afraid as if something awful might happen: 0 = Not at all Total KENDAL-7 score (0-4 normal; 5-9 mild; 10-14 moderate; 15-21 severe): 0 Source: Developed by Drs. Edward Hoover, Tanya Christiansen, Gustabo Stephen and colleagues, with an educational nicole from [employer]. KENDAL-7 Assessment Billing KENDAL-7 Assessment Tool: KENDAL-7 Assessment 85072 Review of Systems Const Denies chills, Denies fatigue, Denies fever(s), Denies headache(s) and Denies weakness Eyes Denies change in vision ENT Denies dizziness, Denies headache(s), Denies hearing loss, Denies nasal congestion, Denies sinus pain, Denies sinus pressure and Denies sore throat Card Denies chest pain, Denies lightheadedness, Denies dyspnea and Denies other (palpitations) Resp Denies cough, Denies dyspnea and Denies wheezing GI Denies abdominal pain, Denies melena, Denies hematochezia, Denies change in bowel habits, Denies dyspepsia and Denies nausea Denies hematuria and Denies dysuria Musc Denies abnormal gait, Denies myalgias, Denies arthralgias, Denies numbness and Denies tingling Skin/Breast Denies rash, Denies unusual bruising and Denies wounds Neuro Denies abnormal gait, Denies dizziness, Denies headache(s), Denies memory loss, Denies numbness, Denies Sensory deficit (Neuro), Denies tingling and Denies weakness Psych Denies anxiety, Denies depression and Denies memory loss Endo Denies cold intolerance, Denies fatigue, Denies heat intolerance, Denies polydipsia and Denies polyuria Phuc/Lymph Denies easy bleeding and Denies easy bruising Aller/Immun Denies wheezing Physical exam (Primary Care) Vital Signs: Last Vital Signs Temp 98.6 F 02/26/25 14:05 Pulse 77 02/26/25 14:05 Resp 16 02/26/25 14:05 BP 110/74 02/26/25 14:05 Pulse Ox 97 02/26/25 14:05 Oxygen Delivery Method Room Air 02/26/25 14:05 BMI result Body Mass Index 31.5 Tobacco/Smoking Status: Tobacco use Status Tobacco use date assessed 02/26/25 02/26/25 14:10 Patient Tobacco Use Status Never used Tobacco 02/26/25 14:03 e-Cigarette/Vaping Use Never Used 02/26/25 14:10 PHQ-9: PHQ-9 Score PHQ-9: Total score 0 02/26/25 14:10 Depression Screening Interpretation: Negative Thrive Assessment: Date of Thrive Assessment Date Thrive assessed 02/26/25 02/26/25 14:10 Currently or been in a relationship where the following occur: No concerns reported Const General: no acute distress, well developed, alert and awake Nutritional Appearance: well nourished Orientation/consciousness: patient oriented x3 HENMT Head: Yes normocephalic and Yes atraumatic Ears: hearing grossly normal bilaterally and TM's normal bilaterally General nose exam: Normal external nose present and Normal nares present Mouth: Normal oral and palatal mucosa present and moist mucous membranes Teeth and gingiva: dentition normal Throat: Yes posterior oropharynx normal Eyes General: appearance normal, both eyes and all related structures Pupils: Equal, round and reactive pupils present and Pupil accommodation reflex normal EOM: EOMs intact bilaterally Neck Neck: Yes normal visual inspection, Yes no lymphadenopathy and Yes trachea midline Thyroid: Thyroid normal Carotids: no bruits Lymphatic: no lymphadenopathy noted Chest Chest palpation & inspection: normal inspection of the chest Resp Effort & Inspection: normal respiratory effort Auscultation: clear to auscultation bilaterally Cardio Rate: regular rate Rhythm: regular rhythm Heart sounds: S1 normal heart sound present, S2 normal heart sound present, no gallops, no murmurs and no rubs Bruits: no abdominal aortic bruits and no carotid bruits GI Palpation (GI): No Abdominal aortic bruit present, Soft to palpation, nontender, No hepatosplenomegaly present and No Rebound tenderness present Auscultation: normal bowel sounds General: Yes no CVA tenderness Back/Spine/Pelvis Back: no CVA tenderness Cervical Spine: cervical ROM normal and No Cervical spine tenderness Thoracic/Lumbar Spine: thoraco-lumbar ROM normal, No pain with thoraco-lumbar ROM, No thoracic spinal tenderness and No lumbar spinal tenderness Skin Lesions: no lesions Rashes: no rashes Trauma: no lacerations or abrasions Wounds: no wounds Nails: normal Neuro General: patient oriented x3 Cranial nerves: Yes Equal, round and reactive pupils present Cognition (Neuro): normal cognition Gait exam (Neuro): Normal gait present Motor exam (neuro): 5/5 motor strength present throughout Sensory Exam: No Sensory deficit (Neuro) Deep tendon reflexes (DTR's): Right patellar reflex intensity grade: 2+ and Left patellar reflex intensity grade: 2+ Extrem General: Yes normal to inspection and No edema Psych Appearance: grossly normal Affect: normal affect Attitude: cooperative Thought process: Normal thought process present Coding Level of Care Code Est Pt Level 3 (90933) Est Pt Prev Care 18-39y(99614) Diagnoses Adult general medical exam Z00.00 Borderline anemia D64.9 Elevated fasting glucose R73.01 Low vitamin D level R79.89 Elevated liver enzymes R74.8 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 Hyperlipidemia E78.5 Additional Codes KENDAL-7 Assessment Billing - KENDAL-7 Assessment Tool: KENDAL-7 Assessment 21993 ([id number]) PHQ-9 - 53346 - PHQ-9 Billing: Yes ([id number]) Assessment & Plan Assessment & Plan (1) Adult general medical exam: Code(s): Z00.00 - Encounter for general adult medical examination without abnormal findings Category: Medical Plan: 24-year-old male presents for complete physical exam Encouraged healthy diet with active lifestyle and plenty of exercise (2) Borderline anemia: Code(s): D64.9 - Anemia, unspecified Category: Medical Plan: Will continue to monitor No blood loss (3) Elevated fasting glucose: Code(s): R73.01 - Impaired fasting glucose Category: Medical Plan: A1c 5.6%. Top-normal Encouraged a diet low in sugars and starches, exercise and weight (4) Low vitamin D level: Code(s): R79.89 - Other specified abnormal findings of blood chemistry Category: Medical Plan: Has started vitamin-D supplementation Can recheck with next blood draw (5) Elevated liver enzymes: Code(s): R74.8 - Abnormal levels of other serum enzymes Category: Medical Plan: Transient elevation in ALT Encouraged good hydration (6) Pseudofolliculitis barbae: Code(s): L73.1 - Pseudofolliculitis barbae Category: Medical Plan: Significant razor burn and ingrown hairs on neck secondary to shaving Patient is in . Will refer him to Dermatology to consider options such as laser treatment. (7) Hyperlipidemia: Code(s): E78.5 - Hyperlipidemia, unspecified Category: Medical Plan: LDL cholesterol is too high HDL, too low Encouraged diet low in saturated fats and cholesterol and weight loss well as exercise Will recheck in a couple of months and discuss Today we discussed that if LDL is still significantly elevated we may need to use medication. Orders: Orders Hemoglobin A1c Today R73.01 - Impaired fasting glucose Complete Blood Count Auto Diff Today D64.9 - Anemia, unspecified, Z00.00 - Encounter for general adult medical examination without abnormal findings Comprehensive [place]. Panel Fast Today R74.8 - Abnormal levels of other serum enzymes, Z00.00 - Encounter for general adult medical examination without abnormal findings Lipid Panel Today E78.5 - Hyperlipidemia, unspecified, Z00.00 - Encounter for general adult medical examination without abnormal findings Referrals Dermatology Referral L73.1 - Pseudofolliculitis barbae
[2025-02-26 14:05] VITALS: BP 110/74; PULSE 77; RESP 16; TEMP 37; O2SAT 97; BMI 31.5
== END 2025-02-26 14:52 | disposition home or self-care (01) ==
LOC: HO.HMCFM 13:53
PROVIDERS: PCP Family Medicine; Visit Provider Family Medicine
DX: Z00.00 Encounter for general adult medical examination without abnormal findings (principal); E78.5 Hyperlipidemia, unspecified; L73.1 Pseudofolliculitis barbae; D64.9 Anemia, unspecified; R73.01 Impaired fasting glucose; R79.89 Other specified abnormal findings of blood chemistry; R74.8 Abnormal levels of other serum enzymes

== ENCOUNTER → 2025-02-26 13:53 | Outpatient (BNVA) | payer OTHER, SELFPAY | PROVIDERS: PCP Family Medicine; Visit Provider Family Medicine | DX: Z00.00 Encounter for general adult medical examination without abnormal findings (principal); E78.5 Hyperlipidemia, unspecified; D64.9 Anemia, unspecified; R73.01 Impaired fasting glucose; R79.89 Other specified abnormal findings of blood chemistry; R74.8 Abnormal levels of other serum enzymes; L73.1 Pseudofolliculitis barbae | CPT/HCPCS: 96127; 99212 ==

== ENCOUNTER 2025-03-06 09:34 | Outpatient (AMB) | payer OTHER, SELFPAY ==
--- NOTE | 2025-03-06 09:40 | MHC.OFFVIS ---
Vital Signs 03/06/25 09:41 Height 5 ft 8 in Weight 215 lb 6 oz BMI 32.7 BP 128/88 Blood Pressure Location Lt brachial Position Sitting Pulse 64 Pulse Source Pulse Oximeter Pulse Oximetry (%) 98 Oxygen Delivery Method Room Air Intake Visit Reasons: 3mnth Intake Note: Patient presents follow up Sleep, Labs/HST in chart(AHI-9, REBECCA-81%, Snoring- 58%. APAP 5-20cm). Accompanied by: Self / Same As Patient Allergies No Known Allergies Allergy (Verified 03/06/25 09:44) HPI Comments Details: 24 year old male presents for a follow up and evaluation of his TEVIN. HST reviewed with pt. AHI-9, oxygen nadirs to 81%, with moderate snoring at 58%, will start him on cpap therapy [id number]. 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 He works 2:30pm to 10pm will get home and goes to bed at midnight. He completed a PSG in 2022 and was dx with moderate sleep apnea AHI was 29.6 in supine position. He is a mouth breather. He is chronically fatigued, even after 8-10 hours of sleep. He has a deviated septum and snores loudly will f/u with ENT in Mar 2025. He wakes up with headaches 1-2x feels drowsy all day. He denies bruxism or jaw pain. He has a h/o sleep talking, and gibberish, denies parasomnias. He denies RLS symptoms. His diet is normal. He plans to start mounjaro 2.5mg once approved with insurance. He goes to the gym 2-3x a week 30 min to an hour, weight lifting and rides the bike for 30min. Drinks plenty of water, denies smoking and or alcohol use. [facility] Medical History HTN (hypertension) with goal to be determined Crushing injury of finger of right hand Sleep apnea Scoliosis Surgical History [place] teeth removed Family History Maternal Uncle Substance abuse Father History of high cholesterol Mother Diabetes Breast cancer Maternal Grandmother Breast cancer Social History Housing: House Alcohol intake: never Patient Tobacco Use Status: Never used Tobacco e-Cigarette/Vaping Use: Never Used Second Hand Smoke Exposure: No service: Yes Current occupational status: employed Current occupation: - [employer]. Current occupational exposures/hazards: Yes Cognitive needs: No Hearing needs: No Vision needs: Yes Physical Exam Vital Signs: Last Vital Signs Pulse 64 03/06/25 09:41 BP 128/88 03/06/25 09:41 Pulse Ox 98 03/06/25 09:41 Oxygen Delivery Method Room Air 03/06/25 09:41 BMI result Body Mass Index 32.7 Const General: cooperative, comfortable and no acute distress Nutritional Appearance: average body habitus and obese Orientation/consciousness: patient oriented x3 HEENT Face and sinus: Yes face symmetric Throat: Yes other ([place] score of 4) Eyes Pupils: Equal, round and reactive pupils present Neck Neck: Yes full ROM Resp Effort & Inspection: normal respiratory effort and able to speak in complete sentences Neuro General: patient oriented x3 and moves all extremities Cranial nerves: Yes Equal, round and reactive pupils present, Yes Normal accommodation reflex present, Yes Normal facial strength present, Yes Midline tongue present, Yes Ability to bilaterally rotate head present and Yes Ability to bilaterally elevate shoulders present Cognition (Neuro): normal cognition Gait exam (Neuro): Normal gait present Motor exam (neuro): 5/5 motor strength present throughout and Normal motor muscle tone present throughout Psych Appearance: grossly normal Attitude: cooperative Thought process: Normal thought process present Thought content: Normal thought content present Assessment & Plan Assessment & Plan (1) Excessive daytime sleepiness: Comment: hypersomolence Code(s): G47.19 - Other hypersomnia Category: Medical (2) History of deviated nasal septum: Comment: refer to ENT Code(s): Z87.09 - Personal history of other diseases of the respiratory system Category: Medical (3) Low vitamin D level: Code(s): R79.89 - Other specified abnormal findings of blood chemistry Category: Medical (4) Low vitamin B12 level: Code(s): R79.89 - Other specified abnormal findings of blood chemistry Category: Medical (5) Chronic headaches: Code(s): R51.9 - Headache, unspecified; G89.29 - Other chronic pain Category: Medical Qualifiers: Headache type: unspecified Intractability: intractable Qualified Code(s): R51.9 - Headache, unspecified; G89.29 - Other chronic pain Plan Mild tevin will start cpap threapy this month and f/u for compliance. Labs reviewed with pt today continue taking vitamin d daily and continue taking b12 1000mcg daily at bedtime. Deviated septum ENT Referral pending in Mar 2025. Headaches will monitor frequency and severity, start Sumatriptan 25mg po at the onset of headache and may take one additional tablet with in 2 hours of the first dose. Do not take more than 200mg po within 24hours. f/u in 3 months Medications: New sumatriptan succinate take one tablet at the onset of headache, may take one additional tablet within 2-4 hours and do not exceed 200mg po with in 24 hours. 25 mg PO ONCE 14 tabs 0RF 1 month MDD 50mg G89.29 - Other chronic pain, R51.9 - Headache, unspecified mecobalamin (vitamin B12) place tablet under tongue and allow to dissolve for at least30 secs before swallowing 1,000 mcg sublingual BEDTIME 90 tabs 0RF low b12 3 months MDD 1000mcg G89.29 - Other chronic pain, R51.9 - Headache, unspecified, R79.89 - Other specified abnormal findings of blood chemistry Patient Instructions: Sleep Hygiene provided: set a scheduled bedtime and wake time to help regulate the circadian rhythm and balance the release of pituitary hormones. Sleep in a dark room, temperatures below 68 degrees, and no devices n bed. Limit caffeinated products 6 hours prior to bed, and limit fluids 2-4 hours prior to bed. Gentle night yoga, diffusing essential oils, and playing soft music can be relaxing. Coding Level of Care Code Est Pt Level 4 (76826) Diagnoses Excessive daytime sleepiness G47.19 History of deviated nasal septum Z87.09 Low vitamin D level R79.89 Low vitamin B12 level R79.89 Chronic intractable headache, unspecified headache type R51.9; G89.29 Headache type: unspecified Intractability: intractable
[2025-03-06 09:41] VITALS: BP 128/88; PULSE 64; O2SAT 98; BMI 32.7
== END 2025-03-06 10:13 | disposition home or self-care (01) ==
LOC: HO.HSMS 09:35
PROVIDERS: PCP Family Medicine; Visit Provider Physician Assistant Medical
DX: G47.19 Other hypersomnia (principal); Z87.09 Personal history of other diseases of the respiratory system; R79.89 Other specified abnormal findings of blood chemistry; R51.9 Headache, unspecified; G89.29 Other chronic pain
CPT/HCPCS: 99214

== ENCOUNTER → 2025-03-06 09:34 | Outpatient (BNVA) | payer OTHER, SELFPAY | PROVIDERS: PCP Family Medicine; Visit Provider Physician Assistant Medical | DX: Z71.2 Person consulting for explanation of examination or test findings (principal); G47.33 Obstructive sleep apnea (adult) (pediatric); G47.19 Other hypersomnia; R51.9 Headache, unspecified; G89.29 Other chronic pain; Z87.09 Personal history of other diseases of the respiratory system; R79.89 Other specified abnormal findings of blood chemistry | CPT/HCPCS: 99212 ==

== ENCOUNTER → 2025-03-29 08:08 | Outpatient (BNV) | payer OTHER, SELFPAY | PROVIDERS: PCP Family Medicine; Visit Provider Radiology Diagnostic Radiology | DX: M51.369 Other intervertebral disc degeneration, lumbar region without mention of lumbar back pain or lower extremity pain (principal); M99.03 Segmental and somatic dysfunction of lumbar region; M48.061 Spinal stenosis, lumbar region without neurogenic claudication | CPT/HCPCS: 72148 ==

== ENCOUNTER 2025-03-29 08:09 | Outpatient (REF) | payer OTHER, SELFPAY ==
--- NOTE | ~2025-03-29 | MR_ITS ---
CLINICAL HISTORY: M51.369 - Other intervertebral disc degeneration, lumbar region without ... --- Additional Notes or Special Instructions: evaluate for disc herniation or spinal stenosis MR lumbar spine without gadolinium Comparison: DX/SR - XR LUMBAR SPINE 2-3 VIEWS - 12/21/24 10:04 EDT Findings: No acute fracture or pathologic bone lesion. Cauda equina and conus medullaris within normal limits. L1-2 and L2-3: No significant central canal or neural foraminal stenosis. L3-4: Mild disc desiccation. Broad-based disc bulge with mild central canal stenosis and no significant neural foraminal stenosis. Grade 1 retrolisthesis of the L3 over L4. L4-5: Minimal broad-based disc bulge with minimal central canal stenosis and no significant neural foraminal stenosis. L5-S1: Moderate disc desiccation. Broad-based disc bulge impinging of the S1 nerve roots with minimal central canal stenosis and mild bilateral neural foraminal stenosis with impingement of the exiting L5 nerve roots. Paraspinous musculature intact. Filum terminale at L1-2. IMPRESSION: 1. Broad-based disc bulge at L5-S1 impinging on S1 nerve roots with mild bilateral neural foraminal stenosis and impingement of exiting L5 nerve roots. 2. Broad-based disc bulge at L3-4 with mild central canal stenosis and grade 1 retrolisthesis of L3 over L4. 3. No acute osseous abnormality. This document has been electronically signed by: Sheldon Hare MD on 03/29/2025 18:27:59
== END 2025-03-29 08:10 | disposition home or self-care (01) ==
LOC: HO.MRI 08:09
PROVIDERS: PCP Family Medicine; Visit Provider Physical Medicine & Rehabilitation
DX: M51.369 Other intervertebral disc degeneration, lumbar region without mention of lumbar back pain or lower extremity pain (principal)
CPT/HCPCS: 72148

== ENCOUNTER 2025-04-06 09:14 | Outpatient (AMB) | payer OTHER, SELFPAY ==
--- NOTE | 2025-04-06 09:24 | MHC.OFFVIS ---
Vital Signs 04/06/25 09:26 Height 5 ft 8 in Weight 199 lb BMI 30.3 Intake Visit Reasons: OV- Lower Back pain, Follow up Intake Note: Aime is a 24 year old male who presents today for a MRI Review of the Lumbar spine, 03/29/25. At today's visit he states that he feels the same no changes to report at this time. Allergies No Known Allergies Allergy (Verified 03/06/25 09:44) Medication List - Last Reconciled 04/06/25 by Vernell Schmidt MD cholecalciferol (vitamin D3) 25 mcg PO DAILY 3 months MDD 25mcg mecobalamin (vitamin B12) 1,000 mcg sublingual BEDTIME 3 months MDD 1000mcg naproxen 500 mg PO BID 30 days sumatriptan succinate 25 mg PO ONCE 1 month MDD 50mg tizanidine 4 mg PO BEDTIME PRN HPI Comments Details: Lower back pain first happened 8 years ago. Better but stagnating. Pain initially from deadlifting. Treated with NSAIDs. Thought to be muscle pull. It is still same area, same type of pain. Across lower back pain. Non radicular. No numbness. Any new weakness. No bladder/bowel issues. Went to urgent care in [place], did xrays, told him to be mild scoliosis 15 degrees. We do not have a copy of those records. Last PT September 2023. He does have workout regimen 3 days a week. Has separate (non radicular) pain on both knees, has appointment with ortho. 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 Since last time I saw her him, no severe episodes. Would have pain depending on activity, need to get support and doesn't or prolonged sitting, standing or fast walking. Non radicular. No numbness. Pain score 2/10, yesterday 4/10 yesterday. MRIs showed broad-based disc bulge L5-S1 with foraminal stenosis, smaller broad-based disc bulge at L3-4. [facility], [facility] Medical History HTN (hypertension) with goal to be determined Crushing injury of finger of right hand Sleep apnea Scoliosis Surgical History [place] teeth removed Family History Maternal Uncle Substance abuse Father History of high cholesterol Mother Diabetes Breast cancer Maternal Grandmother Breast cancer Social History Housing: House Alcohol intake: never Patient Tobacco Use Status: Never used Tobacco e-Cigarette/Vaping Use: Never Used Second Hand Smoke Exposure: No service: Yes Current occupational status: employed Current occupation: - [employer]. Current occupational exposures/hazards: Yes Cognitive needs: No Hearing needs: No Vision needs: Yes Physical Exam Exam Exam: Constitutional: Patient appears to be in no acute distress, well nourished and well developed. Patient was appropriately conversant and oriented. Good historian. MSK: No specific abnormalities found on inspection of the spine and all extremities. Lumbar ROM was full but he had some pain with and range extension and end range forward flexion. No pain with rotation. Bilateral hip, knee and ankle ROM WNL. No ligamentous laxity or crepitance. No increased effusion. Straight-leg raising test negative. FABERE test positive. Strength is 5/5 in all muscle groups tested. No increased tone noted. Neurological: Neurologic examination of the upper and lower extremities was nonfocal with intact sensation, muscle stretch reflexes and without focal motor deficits . Ashton?s negative bilaterally. Babinski was down going bilaterally. Clonus was negative. Gait is non-antalgic without loss of balance. Vital Signs: BMI result Body Mass Index 30.3 Results Reviewed Results Reviewed: Ordering Physician: Vernell Vázquez Date of Service: 03/29/25 Procedure(s): MR lumbar spine wo con Accession Number(s): [id number] cc: Gorge Canseco MD; Vernell Vázquez~ Reason for Exam: M51.369 - Other intervertebral disc degeneration, lumbar region without ... CLINICAL HISTORY: M51.369 - Other intervertebral disc degeneration, lumbar region without ... --- Additional Notes or Special Instructions: evaluate for disc herniation or spinal stenosis MR lumbar spine without gadolinium Comparison: DX/SR - XR LUMBAR SPINE 2-3 VIEWS - 12/21/24 10:04 EDT Findings: No acute fracture or pathologic bone lesion. Cauda equina and conus medullaris within normal limits. L1-2 and L2-3: No significant central canal or neural foraminal stenosis. L3-4: Mild disc desiccation. Broad-based disc bulge with mild central canal stenosis and no significant neural foraminal stenosis. Grade 1 retrolisthesis of the L3 over L4. L4-5: Minimal broad-based disc bulge with minimal central canal stenosis and no significant neural foraminal stenosis. L5-S1: Moderate disc desiccation. Broad-based disc bulge impinging of the S1 nerve roots with minimal central canal stenosis and mild bilateral neural foraminal stenosis with impingement of the exiting L5 nerve roots. Paraspinous musculature intact. Filum terminale at L1-2. IMPRESSION: 1. Broad-based disc bulge at L5-S1 impinging on S1 nerve roots with mild bilateral neural foraminal stenosis and impingement of exiting L5 nerve roots. 2. Broad-based disc bulge at L3-4 with mild central canal stenosis and grade 1 retrolisthesis of L3 over L4. 3. No acute osseous abnormality. Assessment & Plan Assessment & Plan (1) Lumbar degenerative disc disease: Code(s): M51.369 - Other intervertebral disc degeneration, lumbar region without mention of lumbar back pain or lower extremity pain Category: Medical Plan We reviewed lumbar MRI images together. Notable L5-S1 broad-based disc bulge. He has chronic axial back pain, but fortunately no signs of radiculopathy. He has tried adequate conservative management and is now open to trying epidural injection. We will send patient to Dr. Becerril for an L5-S1 interlaminar epidural injection. Patient has asked me to fill up disability/work forms. Continue current restrictions given from last visit. Assessment and plan discussed with patient, and patient was agreeable. All questions were answered thoroughly. Follow up around 1 month after injection. Vernell Schmidt MD, KILO Board Certified, [place] Board of Physical Medicine and Rehabilitation (ABPMR) Board Certified, [place] Board of Electrodiagnostic Medicine (ABEM) Coding Level of Care Code Est Pt Level 4 (82435) Diagnoses Lumbar degenerative disc disease M51.369
[2025-04-06 09:26] VITALS: BMI 30.3
== END 2025-04-06 09:52 | disposition home or self-care (01) ==
LOC: HO.HOS 09:15
PROVIDERS: PCP Family Medicine; Visit Provider Physical Medicine & Rehabilitation
DX: M51.369 Other intervertebral disc degeneration, lumbar region without mention of lumbar back pain or lower extremity pain (principal)
CPT/HCPCS: 99214

== ENCOUNTER → 2025-04-06 09:14 | Outpatient (BNVA) | payer OTHER, SELFPAY | PROVIDERS: PCP Family Medicine; Visit Provider Physical Medicine & Rehabilitation | DX: M51.369 Other intervertebral disc degeneration, lumbar region without mention of lumbar back pain or lower extremity pain (principal) | CPT/HCPCS: 99212 ==

== ENCOUNTER 2025-04-23 13:49 | Outpatient (REF) | payer OTHER, SELFPAY ==
--- OUTSIDE RECORDS SUMMARY | 2025-04-23 17:18 | XMS_ITS | Data Portability ---
Author Organization [facility] - [facility], Allergy Address [address] [address] Care Team Providers Care Tubular Riveter Name Role Phone JUANITO WHITE Primary Care Provider Assessment Encounter Date Assessment Date Assessment LastModified by Organization Details LastModified Time 04/09/2025 04/09/2025 - Deviated nasal septum, left side. - Turbinate hypertrophy, bilateral. -CLARENCE on CPAP Plan: A trial of Fluticasone nasal spray is recommended for six weeks to improve nasal breathing. The patient is instructed to use the spray daily with a cross-spray technique to minimize the risk of nosebleeds, given his use of CPAP therapy. Follow-up is scheduled in six weeks to assess the effectiveness of the nasal spray. If symptoms persist, surgical intervention to correct the deviated septum will be considered. Patient education regarding the use of Fluticasone and its potential benefits was provided. [email or web address] Not available 04/09/2025 13:22:26 Plan of Treatment Reminders Order Date Submit Date Provider Last Modified By Organization Details Last Modified Time Details Appointments Establish ed 15 2024 01:15P Mehrdad Santoro, DO Not available Not available Not available Lab None recorded. Referral None recorded. Procedures None recorded. Surgeries None recorded. Imaging None recorded. Medication Orders None recorded. Patient TargetsNo targets recorded. Patient Instructions Encounter Date Encounter Id Patient Instructions Last Modified By Organization Details Last Modified Time 04/09/2025 [id number] - Use Fluticasone nasal spray daily for six weeks. - Employ cross-spray technique to minimize risk of nosebleeds. - Schedule follow-up appointment in six weeks to assess improvement. - Contact the clinic if symptoms worsen or if there are any concerns. [email or web address] Not available 04/09/2025 13:20:25 Please note: Parts of this encounter note have been generated by AI based on audio conversation. Patient consent was required prior to utilizing this technology. Content review was required prior to finalizing the note. [email or web address] Not available 04/09/2025 13:20:25 Reason for Referral None Reported. Problems Name Problem SNOMED Code Status Onset Date Resolution Date Notes Provider Name and Address Organization Details Recorded Time Obstructive sleep apnea syndrome 72802649 Active 2024 Jaya Santoro, DO [address] [facility],[address] [facility], [email or web address], [address], [facility] - [facility] 12:59:00 Sleeptalking 90557966 Active 2024 Jaya Santoro, DO [address] [facility], [address] [facility], [email or web address], [address], [facility] - [facility] 12:59:21 Deviated nasal septum 910857694 Active 2024 Jaya Santoro, DO [address] [facility],[address] [facility], [email or web address], [address], [facility] - [facility] 12:59:41 Hypertrophy of nasal turbinates 43374239 Active 2024 Jaya Santoro, DO [address] [facility], [address] [facility], [email or web address], [address], [facility] - [facility] 12:59:46 Problem Notes None recorded. Medical Equipment None Reported. Allergies No known drug allergies Medications Name Sig Start Date Stop Date Status Note LastModified by Organization Details LastModified Time cyclobenzapri ne 10 mg tablet TAKE 1 TABLET BY MOUTH THREE TIMES DAILY 04/09 completed Not Available Not Available Not Available ibuprofen 600 mg tablet TAKE 1 TABLET BY MOUTH EVERY 6 HOURS NEEDED FOR PAIN 04/09 completed Not Available Not Available Not Available sumatriptan active Not Available Not A vailable Not Available tizanidine active Not Available Not Av ailable Not Available naproxen active Not Available Not Avai lable Not Available D3-1999 active Not Available Not Avail able Not Available Vitals Date Recorded Body height Body mass index (BMI) Body weight Provider Name and Address Organization Details Last Updated DateTime 04/09/2025 172.72 cm 30.3 kg/m2 36547.88 g JONATHAN SWENSON [place] - [facility] 04/09/2025 13:06:35 Social History None recorded. Functional Status None recorded. Mental Status None recorded. Family History Nothing Reported. Medical History No medical history recorded. Past Encounters Encounter ID Performer Location Encounter Start Date Encounter Closed Date Diagnosis/Indication Diagnosis SNOMED-CT Code Diagnosis ICD10 Code Diagnosis IMO Codes Diagnosis Note [id number] Jyaa Santoro DO [facility] [address] [address] 04/09/2025 12:46:57 04/09/2025 13:20:54 Obstructive sleep apnea syndrome 75821656 G47.33 3602280 - We did have a discussion on sleep hygiene today which includes avoidance of any screens 30 minutes to an hour prior to bedtime, laying in bed only for sleep, avoidance of caffeine or stimulants hours prior to bedtime. We also encouraged the avoidance of alcohol or sedatives for sleep as this reduces overall sleep quality. Sleeptalking 77314387 G4 7.8 712470 Deviated nasal septum 12 9672254 J34.2 318438 Hypertroph y of nasal turbinates 04329956 J34.3 656848 Health Concerns Section Related Observation LastModified by Organization Detai ls LastModified Time None Recorded Concern Status LastModified by Organization Details LastModified Time None Recorded Advance Directives Directive None Recorded Payers Insurance Date Sequence Insurance Name Policy Number Policy Olea Covered Member ID Olea Member ID Guarantor Name 12/08/2024 1 [facility] Aime Cerda [id number] Aime Cerda 04/17/2025 1 [employer] () Aime Cerda [id number] Aime Cerda Notes Date Note Type Note Provider Name and Address Organization Details Recorded Time 04/09/2025 text/html RR: Hx of CLARENCE and CPAP. Prior PSG was in 2022 in [place] - 29.6. has DNS and nasal obstruction, chronic fatigue, Sleep talking Aime Cerda is a 24-year-old male who presents for evaluation of nasal obstruction and difficulty using CPAP therapy due to a deviated septum. Examination reveals a fair deviation of the septum to the left side, along with grade three turbinate hypertrophy bilaterally. He reports chronic nasal congestion and difficulty with nasal breathing. No nasal masses or tumors are observed. The patient has been using CPAP therapy and is at increased risk for nosebleeds. A trial of Fluticasone nasal spray for six weeks is recommended to improve nasal breathing before considering surgical intervention. Jaya Santoro, [address] [facility],[place] [address], [place], [address], [facility] - [facility] 04/09/2025 13:22:32
--- OUTSIDE RECORDS SUMMARY | 2025-04-23 17:18 | XMS_ITS | Continuity of Care Document ---
Author Organization [place] - [facility], [facility] Address [address] [place] [address] Care Team Providers Care Field Interviewer Name Role Phone JUANITO WHITE Primary Care Provider [phone] Assessment Encounter Date Assessment Date Assessment LastModified [...] By Organization Details Last Modified Time 04/09/2025 04774 - Use Fluticasone nasal spray daily for [...] Details Recorded Time Obstructive sleep apnea syndrome 11033633 Active 2024 Jaya Santoro, [address], [address] [facility], [facility], [address], [facility] - [facility] 12:59:00 Sleeptalking 05683862 Active 2024 Jaya Santoro [address], [address] [facility], [place], [address], [facility] - [facility] 12:59:21 Deviated nasal septum 080648480 Active 2024 Jaya Santoro, [address], [address] [facility], [facility] [place], [address], [facility] - [facility] 12:59:41 Hypertrophy of nasal turbinates 05697135 Active 2024 Jaya Santoro DO [address] [place] [address] E [facility], [facility] [place], [address], [facility] - [facility] 12:59:46 Problem Notes None recorded. Medical [...] Updated DateTime 04/09/2025 172.72 cm 30.3 kg/m2 03657.88 g JONATHAN MESSI [facility]ER[facility] - [facility] 04/09/2025 13:06:35 Social History None recorded. Functional Status None recorded. Mental Status None recorded. Family History Nothing Reported. Medical History No medical history recorded. Past Encounters Encounter ID Performer Location Encounter Start Date Encounter Closed Date Diagnosis/Indication Diagnosis SNOMED-CT Code Diagnosis ICD10 Code Diagnosis IMO Codes Diagnosis Note [id number] Jaya Santoro DO [facility] [address] [address] 04/09/2025 12:46:57 04/09/2025 13:20:54 Obstructive sleep apnea syndrome 27270275 G47.33 3435850 - We did have a discussion on sleep hygiene today which includes avoidance of any screens 30 minutes to an hour prior to bedtime, laying in bed only for sleep, avoidance of caffeine or stimulants hours prior to bedtime. We also encouraged the avoidance of alcohol or sedatives for sleep as this reduces overall sleep quality. Sleeptalking 56568519 G4 7.8 890392 Deviated nasal septum 12 7231118 J34.2 701016 Hypertroph y of nasal turbinates 70344361 J34.3 392775 Health Concerns Section Related Observation LastModified by Organization Detai ls LastModified Time None Recorded Concern Status LastModified by Organization Details LastModified Time None Recorded Payers Encounter Date Sequence Insurance Name Policy Number Policy Olea Covered Member ID Olea Member ID Guarantor Name 04/09/2025 1 [employer] () Aime Cerda [id number] Aime Cerda Notes Date Note Type Note Provider Name and Address Organization Details Recorded Time 04/09/2025 text/html RR: Hx of CLARENCE and CPAP. Prior PSG was in 2022 in [facility] - 29.6. has DNS and nasal obstruction, [...] surgical intervention. Jaya Santoro, [address] [facility],[place] [address], [place], [address], [facility] - [facility] 04/09/2025 13:22:32
[2025-04-23 18:32] LABS: MANUAL DIFF FLAG NO
[2025-04-23 19:13] LABS: Hematocrit 44.3 % (42.0-52.0); Hemoglobin 14.5 g/dl (14.0-18.0); Imm Gran Abs Auto 0.01 X10*3/uL (0.00-0.03); Imm Gran Pct Auto 0.2 % (0.0-0.4); Lymphocytes Absolute Auto 1.3 X10*3/uL (1.2-4.9); Mean Corpuscular HGB Conc 32.7 g/dl (31.0-36.0); Mean Corpuscular Hemoglobin 27.4 pg (27.0-33.0); Mean Corpuscular Volume 83.7 fL (80.0-98.0); NRBC Abs Auto 0.000 X10*3/uL (0.0-0.012); NRBC Pct Auto 0.0 /100WBC (0.0-0.2); Platelet Count 238 X10*3/uL (160-400); Red Blood Count 5.29 X10*6/uL (4.60-5.80); White Blood Count 4.5 X10*3/uL (4.8-10.8)
[2025-04-23 19:52] LABS: Alanine Aminotransferase 40 U/L (0-40); Albumin Level 5.0 g/dL (3.5-5.0); Alkaline Phosphatase 89 U/L (39-117); Anion Gap 11 (12-20); Aspartate Amino Transferase 27 U/L (5-37); Blood Urea Nitrogen 11 mg/dL (9-16); Calcium 9.6 mg/dL (8.4-10.2); Carbon Dioxide 29 mmol/L (22-29); Chloride 105 mmol/L (96-108); Cholesterol 184 mg/dL (<200); Estimated Glomerular Filt Rate > 60; HDL Cholesterol 37 mg/dL (>40); Potassium 3.8 mmol/L (3.3-5.1); Sodium 141 mmol/L (135-145); Total Protein 7.4 g/dL (6.5-8.0); Triglycerides 132 mg/dL (<150)
== END 2025-04-23 13:50 | disposition home or self-care (01) ==
LOC: HO.WFDLDS 13:49
PROVIDERS: Visit Provider Family Medicine
DX: Z00.00 Encounter for general adult medical examination without abnormal findings (principal); R73.01 Impaired fasting glucose; R74.8 Abnormal levels of other serum enzymes; E78.5 Hyperlipidemia, unspecified; D64.9 Anemia, unspecified
CPT/HCPCS: 36415; 80053; 80061; 83036; 85025

== ENCOUNTER → 2025-05-11 15:16 | Outpatient (AMB) | payer OTHER, SELFPAY ==
--- NOTE | 2025-05-11 15:32 | MHC.PC.OV ---
Intake Visit Reasons: LABS Intake Note: [facility] to review labs. [employer] Marketing Specialist Required: No Allergies No Known Allergies Allergy (Verified 05/11/25 15:32) Medication List - Last Reconciled 05/11/25 by Gorge Canseco MD atorvastatin (Lipitor) 10 mg PO BEDTIME 90 days cholecalciferol (vitamin D3) 25 mcg PO DAILY 3 months MDD 25mcg mecobalamin (vitamin B12) 1,000 mcg sublingual BEDTIME 3 months MDD 1000mcg naproxen 500 mg PO BID 30 days sumatriptan succinate 25 mg PO ONCE 1 month MDD 50mg tizanidine 4 mg PO BEDTIME PRN Tobacco use date assessed: 05/11/25 Dental Screening Dental Screen Date: 05/11/25 Did you have a dental visit in the last 12 months?: Yes Did you have a dental problem in the last 6 months where you did not have access to dental care?: No Was dental information given to patient?: Patient has dentist HPI LABS HPI Details 24 y/o male presents to f/u [facility]-labs via telemedicine. Labs drawn 04/23/25. Reviewed labs with pt. Triglycerides 132. TC 184. LDL 121. HDL low at 37. A1c 5.8%. Mild anemia has resolved. [facility] Medical History HTN (hypertension) with goal to be determined Crushing injury of finger of right hand Sleep apnea Scoliosis Surgical History [place] teeth removed Family History Maternal Uncle Substance abuse Father History of high cholesterol Mother Diabetes Breast cancer Maternal Grandmother Breast cancer Social History Housing: House Alcohol intake: never Patient Tobacco Use Status: Never used Tobacco e-Cigarette/Vaping Use: Never Used Second Hand Smoke Exposure: No service: Yes Current occupational status: employed Current occupation: - [employer]. Current occupational exposures/hazards: Yes Cognitive needs: No Hearing needs: No Vision needs: Yes Questionnaire Thrive Questionnaire Date Thrive assessed: 11/14/24 I am a: Patient What is your living situation today?: I have a steady place to live Within the past 12 months, did the food you bought not last and you didn't have the money to get more?: Never true Within the past 12 months, did you worry whether your food would run out before you got money to buy more?: Never true Do you have trouble paying for medicines?: No Do you have trouble getting transportation to medical appointments?: No Do you have trouble paying your heating and electricity bill?: No Do you have trouble taking care of your child, family member or friend?: No Do you have trouble with day-to-day activities such as bathing, preparing meals, shopping, managing finances, etc.?: No Are you currently unemployed and looking for a job?: No Are you interested in more education?: Yes Currently or been in a relationship where the following occur: No concerns reported THRIVE Score: 0 KENDAL-7 AMB Questionnaire KENDAL-7 Date KENDAL - 7 assessed: 02/26/25 Source: Developed by Drs. Edward Hoover, Tanya Christiansen, Gustabo Stephen and colleagues, with an educational nicole from [employer]. Review of Systems Const Denies chills, Denies fatigue, Denies fever(s), Denies headache(s) and Denies weakness ENT Denies dizziness and Denies headache(s) Card Denies dyspnea Resp Denies cough, Denies dyspnea, Denies wheezing and Denies other (shortness of breath) Musc Denies numbness and Denies tingling Neuro Denies dizziness, Denies headache(s), Denies numbness, Denies tingling and Denies weakness Psych Denies anxiety and Denies depression Endo Denies fatigue Aller/Immun Denies wheezing Physical exam (Primary Care) Tobacco/Smoking Status: Tobacco use Status Tobacco use date assessed 05/11/25 05/11/25 15:33 Patient Tobacco Use Status Never used Tobacco 05/11/25 15:33 e-Cigarette/Vaping Use Never Used 05/11/25 15:33 Thrive Assessment: Date of Thrive Assessment Date Thrive assessed 11/14/24 05/11/25 15:33 Currently or been in a relationship where the following occur: No concerns reported Telehealth Telehealth Telehealth Platform: Telephone Location of provider rendering services: practice address Location of patient: address on file Patient Identification confirmed using: Name, : Yes Telehealth method: voice only Patient verbally consented to treatment: Yes Patient verbally consented to billing insurance company: Yes Patient informed of any privacy concerns related to visit: Yes Minutes spent on Phone/Video with Pt.: 5 Coding Level of Care Code Tele Est Pt Level 2 (09330) Diagnoses Hyperlipidemia E78.5 Low HDL (under 40) E78.6 Elevated liver enzymes R74.8 Borderline anemia D64.9 Pre-diabetes R73.03 Low vitamin D level R79.89 Assessment & Plan Assessment & Plan (1) Hyperlipidemia: Code(s): E78.5 - Hyperlipidemia, unspecified Category: Medical Plan: LDL cholesterol is again too high. HDL is too low Will start atorvastatin Encouraged dietary changes and weight loss Will recheck lipids in about 3 months (2) Low HDL (under 40): Code(s): E78.6 - Lipoprotein deficiency Category: Medical Plan: As above (3) Elevated liver enzymes: Code(s): R74.8 - Abnormal levels of other serum enzymes Category: Medical Plan: Patient had transient elevation in liver enzymes and has been within normal range since Encouraged good hydration and weight loss (4) Borderline anemia: Code(s): D64.9 - Anemia, unspecified Category: Medical Plan: This has resolved (5) Pre-diabetes: Code(s): R73.03 - Prediabetes Category: Medical Plan: A1c in pre diabetes range Encouraged a diet low in sugars and starches Encouraged weight loss (6) Low vitamin D level: Code(s): R79.89 - Other specified abnormal findings of blood chemistry Category: Medical Plan Vitamin-D level is low. Had sent a script for vitamin-D but he says he finished it and did not get any refills. Refilling this with additional refills and he will continue it through the winter. Will recheck level in 3 months with next blood draw Orders: Orders Vitamin B12 and Folate Today E53.8 - Deficiency of other specified B group vitamins, R79.89 - Other specified abnormal findings of blood chemistry Comprehensive [place]. Panel Fast Today E78.5 - Hyperlipidemia, unspecified, Z00.00 - Encounter for general adult medical examination without abnormal findings Vitamin D 25-OH Total Today E55.9 - Vitamin D deficiency, unspecified Hemoglobin A1c Today R73.01 - Impaired fasting glucose, R73.03 - Prediabetes Lipid Panel Today E78.5 - Hyperlipidemia, unspecified, Z00.00 - Encounter for general adult medical examination without abnormal findings Medications: New atorvastatin (Lipitor) 10 mg PO BEDTIME 90 tabs 2RF 90 days Refilled cholecalciferol (vitamin D3) take one capsule daily at bedtime for 3 months 25 mcg PO DAILY 90 caps 2RF low vitamin d 3 months MDD 25mcg R79.89 - Other specified abnormal findings of blood chemistry
--- OUTSIDE RECORDS SUMMARY | 2025-05-11 16:27 | XMS_ITS | Continuity of Care Document ---
Author Organization [place] - [facility], [facility] Address [address] [place] [address] Care Team Providers Care Corrective Therapy Aide Name Role Phone JAUNITO WHITE Primary Care Provider [phone] Assessment Encounter Date Assessment Date Assessment LastModified [...] By Organization Details Last Modified Time 04/09/2025 21966 - Use Fluticasone nasal spray daily for [...] Details Recorded Time Obstructive sleep apnea syndrome 17896525 Active 2024 Jaya Santoro, [address], [address] [facility], [place], [address], [facility] - [facility] 12:59:00 Sleeptalking 06044042 Active 2024 Jaya Santoro [address], [address] [facility], [place], [address], [facility] - [facility] 12:59:21 Deviated nasal septum 122795312 Active 2024 Jaya Santoro, [address], [address] [facility], [place], [address], [facility] - [facility] 12:59:41 Hypertrophy of nasal turbinates 50357918 Active 2024 Jaya Santoro DO [address] [place] [address] [facility], [place], [address], [facility] - [facility] 12:59:46 Problem Notes None recorded. Medical [...] Updated DateTime 04/09/2025 172.72 cm 30.3 kg/m2 29106.88 g JONATHAN MESSI BERNABE - [facility] 04/09/2025 13:06:35 Social History None recorded. Functional Status None recorded. Mental Status None recorded. Family History Nothing Reported. Medical History No medical history recorded. Past Encounters Encounter ID Performer Location Encounter Start Date Encounter Closed Date Diagnosis/Indication Diagnosis SNOMED-CT Code Diagnosis ICD10 Code Diagnosis IMO Codes Diagnosis Note [id number] Jaya Santoro DO [facility] [address] [address] 04/09/2025 12:46:57 04/09/2025 13:20:54 Obstructive sleep apnea syndrome 20293143 G47.33 8775407 - We did have a discussion on sleep hygiene today which includes avoidance of any screens 30 minutes to an hour prior to bedtime, laying in bed only for sleep, avoidance of caffeine or stimulants hours prior to bedtime. We also encouraged the avoidance of alcohol or sedatives for sleep as this reduces overall sleep quality. Sleeptalking 35877425 G4 7.8 379840 Deviated nasal septum 12 7504227 J34.2 689249 Hypertroph y of nasal turbinates 06162227 J34.3 837899 Health Concerns Section Related Observation LastModified by Organization Detai ls LastModified Time None Recorded Concern Status LastModified by Organization Details LastModified Time None Recorded Payers Encounter Date Sequence Insurance Name Policy Number Policy Olea Covered Member ID Olea Member ID Guarantor Name 04/09/2025 1 [employer] () Aime Cerda [id number] Aime Cerda Notes Date Note Type Note Provider Name and Address Organization Details Recorded Time 04/09/2025 text/html RR: Hx of CLARENCE and CPAP. Prior PSG was in 2022 in [facility] - 29.6. has DNS and nasal obstruction, [...] before considering surgical intervention. Jaya Santoro, [address] [facility],[place] [address], [place], [address], [facility] - [facility] 04/09/2025 13:22:32
--- OUTSIDE RECORDS SUMMARY | 2025-05-11 16:27 | XMS_ITS | Data Portability ---
Author Organization [facility] - [facility], Allergy Address [address] [address] Care Team Providers Care Rn Oncology Research Name Role Phone JUANITO WHITE Primary Care Provider [phone] Assessment Encounter Date Assessment Date Assessment LastModified [...] By Organization Details Last Modified Time 04/09/2025 72475 - Use Fluticasone nasal spray daily for [...] Details Recorded Time Obstructive sleep apnea syndrome 50482352 Active 2024 Jaya Santoro, DO [address] [facility], [place], [address], [facility] - [facility] 12:59:00 Sleeptalking 09150199 Active 2024 Jaya Santoro, DO [address] [facility], [address] [facility], [place], [address], [facility] - [facility] 12:59:21 Deviated nasal septum 489655108 Active 2024 Jaya Santoro, DO [address] [facility],[address] [facility], [place], [address], [facility] - [facility] 12:59:41 Hypertrophy of nasal turbinates 52219899 Active 2024 Jaya Santoro, DO [address] [facility], [address] [facility], [place], [address], [facility] - [facility] 12:59:46 Problem Notes None recorded. Medical [...] Updated DateTime 04/09/2025 172.72 cm 30.3 kg/m2 00451.88 g JONATHAN SWENSON [place] - [facility] 04/09/2025 13:06:35 Social History None recorded. Functional Status None recorded. Mental Status None recorded. Family History Nothing Reported. Medical History No medical history recorded. Past Encounters Encounter ID Performer Location Encounter Start Date Encounter Closed Date Diagnosis/Indication Diagnosis SNOMED-CT Code Diagnosis ICD10 Code Diagnosis IMO Codes Diagnosis Note [id number] Jaya Santoro DO [facility] [address] [address] 04/09/2025 12:46:57 04/09/2025 13:20:54 Obstructive sleep apnea syndrome 97799338 G47.33 6296196 - We did have a discussion on sleep hygiene today which includes avoidance of any screens 30 minutes to an hour prior to bedtime, laying in bed only for sleep, avoidance of caffeine or stimulants hours prior to bedtime. We also encouraged the avoidance of alcohol or sedatives for sleep as this reduces overall sleep quality. Sleeptalking 99033614 G4 7.8 718266 Deviated nasal septum 12 1194747 J34.2 944120 Hypertroph y of nasal turbinates 89193731 J34.3 840176 Health Concerns Section Related Observation LastModified by Organization Detai ls LastModified Time None Recorded Concern Status LastModified by Organization Details LastModified Time None Recorded Advance Directives Directive None Recorded Payers Insurance Date Sequence Insurance Name Policy Number Policy Olea Covered Member ID Olea Member ID Guarantor Name 12/08/2024 1 [facility] Aime Cerda [id number] Aime Cerda 04/17/2025 1 [employer] () Aime Cerda [id number] Aime Cerda Notes Date Note Type Note [...] before considering surgical intervention. Jaya Santoro, [address] [facility],[place] [address], [place], [address], [facility] - [facility] 04/09/2025 13:22:32
== END ==
LOC: HO.HMCFM 15:16
PROVIDERS: PCP Family Medicine; Visit Provider Family Medicine
DX: D64.9 Anemia, unspecified (principal); R73.03 Prediabetes; E78.5 Hyperlipidemia, unspecified; E78.6 Lipoprotein deficiency; R74.8 Abnormal levels of other serum enzymes; R79.89 Other specified abnormal findings of blood chemistry